=== PATIENT | male | born 1940 | race Caucasian/White ===

== ENCOUNTER 2020-02-11 14:21 | Outpatient (CLI) | payer MEDICARE, SELFPAY ==
[2020-02-11 15:33] LABS: Alanine Aminotransferase 13 U/L (4-50); Albumin Level 4.1 g/dL (3.5-5.1); Alkaline Phosphatase 88 U/L (38-126); Aspartate Amino Transferase 31 U/L (17-59); Bilirubin,Total 0.2 mg/dL (0.2-1.3); Blood Urea Nitrogen 40 mg/dL (9-20); Calcium 10.3 mg/dL (8.4-10.2); Carbon Dioxide 26 mmol/L (22-30); Chloride 105 mmol/L (98-107); Estimated Glomerular Filt Rate 42; Glucose 176 mg/dL (75-110); Potassium 4.7 mmol/L (3.4-5.0); Sodium 138 mmol/L (137-145); Uric Acid 8.2 mg/dL (3.5-8.5)
== END 2020-02-11 14:22 | disposition home or self-care (01) ==
PROVIDERS: PCP Physician Assistant; Referring Provider Podiatrist Foot & Ankle Surgery; Visit Provider Physician Assistant
DX: N18.3 Chronic kidney disease, stage 3 (moderate) (principal); M10.9 Gout, unspecified
CPT/HCPCS: 36415; 80053; 84550

== ENCOUNTER 2020-04-10 12:42 | Outpatient (CLI) | payer MEDICARE, SELFPAY ==
[2020-04-10 13:14] LABS: Total Protein Urine Random 31 mg/dL
[2020-04-10 13:20] LABS: Albumin Level 4.1 g/dL (3.5-5.1); Anion Gap 8 mmol/L (8-16); Blood Urea Nitrogen 51 mg/dL (9-20); Calcium 9.8 mg/dL (8.4-10.2); Carbon Dioxide 24 mmol/L (22-30); Chloride 103 mmol/L (98-107); Estimated Glomerular Filt Rate 34; Glucose 149 mg/dL (75-110); Phosphorus 3.5 mg/dL (2.5-4.5); Sodium 135 mmol/L (137-145)
[2020-04-10 13:32] LABS: Parathyroid Intact 89.1 pg/mL (7.5-53.5)
[2020-04-10 14:28] LABS: Vitamin D 25 Hydroxy 82.4 ng/mL
== END 2020-04-10 12:43 | disposition home or self-care (01) ==
PROVIDERS: PCP Physician Assistant; Visit Provider Internal Medicine Nephrology
DX: N18.3 Chronic kidney disease, stage 3 (moderate) (principal)
CPT/HCPCS: 36415; 80069; 82306; 82570; 83970; 84156

== ENCOUNTER 2020-05-28 16:14 | Outpatient (CLI) | payer MEDICARE, SELFPAY ==
[2020-05-28 17:01] LABS: Alanine Aminotransferase 14 U/L (4-50); Alkaline Phosphatase 94 U/L (38-126); Anion Gap 8 mmol/L (8-16); Aspartate Amino Transferase 30 U/L (17-59); Bilirubin,Total 0.3 mg/dL (0.2-1.3); Blood Urea Nitrogen 42 mg/dL (9-20); Calcium 10.1 mg/dL (8.4-10.2); Carbon Dioxide 29 mmol/L (22-30); Chloride 105 mmol/L (98-107); Estimated Glomerular Filt Rate 39; Glucose 132 mg/dL (75-110); Potassium 4.3 mmol/L (3.4-5.0); Sodium 142 mmol/L (137-145); Uric Acid 9.1 mg/dL (3.5-8.5)
== END 2020-05-28 16:15 | disposition home or self-care (01) ==
LOC: ANHLAB 16:20
PROVIDERS: PCP Physician Assistant; Visit Provider Podiatrist Foot & Ankle Surgery
DX: M10.9 Gout, unspecified (principal); B35.1 Tinea unguium
CPT/HCPCS: 36415; 80053; 84550

== ENCOUNTER 2020-07-15 10:57 | Outpatient (CLI) | payer MEDICARE, SELFPAY ==
[2020-07-15 11:58] LABS: Hematocrit 41.2 % (42.0-52.0); Hemoglobin 13.7 g/dL (14.0-18.0); Mean Corpuscular HGB Conc 33.3 g/dl (32-36); Mean Corpuscular Hemoglobin 32.1 pg (26-34); Mean Corpuscular Volume 96.5 fl (80-100); Mean Platelet Volume 10.3 fl (7.4-10.4); Platelet Count Result 192 k/mm3 (150-375); Red Blood Count 4.27 M/mm3 (4.6-6.20); Red Cell Distribution Width 13.4 % (11.5-14.5); White Blood Count 9.3 K/mm3 (4.5-10.0)
[2020-07-15 12:10] LABS: Albumin Level 3.9 g/dL (3.5-5.1); Anion Gap 5 mmol/L (8-16); Blood Urea Nitrogen 37 mg/dL (9-20); Calcium 10.2 mg/dL (8.4-10.2); Carbon Dioxide 28 mmol/L (22-30); Chloride 106 mmol/L (98-107); Estimated Glomerular Filt Rate 42; Glucose 145 mg/dL (75-110); Phosphorus 3.2 mg/dL (2.5-4.5); Sodium 139 mmol/L (137-145); Uric Acid 5.4 mg/dL (3.5-8.5)
[2020-07-15 12:20] LABS: Creatinine Urine 96.2 mg/dL; Total Protein Urine Random 61 mg/dL
[2020-07-15 13:01] LABS: Vitamin D 25 Hydroxy 67.3 ng/mL
== END 2020-07-15 10:58 | disposition home or self-care (01) ==
LOC: ANHLAB 10:59
PROVIDERS: PCP Physician Assistant; Visit Provider Internal Medicine Nephrology
DX: M10.9 Gout, unspecified (principal); N18.30 Chronic kidney disease, stage 3 unspecified
CPT/HCPCS: 36415; 80069; 82306; 82570; 83970; 84156; 84550; 85027

== ENCOUNTER 2020-10-22 10:27 | Outpatient (CLI) | payer MEDICARE, SELFPAY ==
--- NOTE | ~2020-10-22 | MR_ITS ---
EXAMINATION: MR lumbar spine wo con DATE: 10/22/2020 11:12 INDICATION: Chronic right-sided low back pain. TECHNIQUE: Magnetic resonance imaging (MRI) of the lumbar spine was performed without intravenous con trast. Sequences included sagittal T2-weighted FSE, sagittal T2-weighted FS FSE, sagittal T1-weighted FSE, and axial T2-weighted FSE. COMPARISON: Lumbar spine MRI 04/02/2014 FINDINGS: There is 7 degrees dextrocurvature of thoracolumbar spine. There is 3 mm retrolisthesis of L2 on L3, L3 on L4, L4 on L5, and L5 on S1. Vertebral body heights are normal. There is mildly decrea sed disc height at L1-L2, severely decreased disc height at L2-L3, mildly decreased disc height at L4 -L5, and moderately decreased disc height at L5-S1. The distal spinal cord signal intensity is normal . The conus medullaris is at T12-L1. The following disc levels are specifically discussed: L1-L2: The disc is bulging. There is mild left facet joint osteoarthritis. There is mild bilateral ne ural foraminal stenosis. There is mild central canal stenosis. L2-L3: The disc is bulging and has an annular fissure. There is no facet joint osteoarthritis. There is moderate bilateral neural foraminal stenosis. There is mild central canal stenosis. L3-L4: The disc is bulging and has an annular fissure. There is mild bilateral facet joint osteoarthr itis. There is moderate bilateral neural foraminal stenosis. There is mild central canal stenosis. L4-L5: The disc is bulging and has an annular fissure. There is no facet joint osteoarthritis. There is moderate bilateral neural foraminal stenosis. There is mild central canal stenosis. L5-S1: The disc is bulging and has an annular fissure. There is mild bilateral facet joint osteoarthr itis. There is moderate bilateral neural foraminal stenosis. There is mild central canal stenosis. IMPRESSION: 1. Severe lumbar spondylosis with interval improvement at L5-S1. Reviewed, dictated and finalized at location A. [employer]
== END 2020-10-22 10:28 | disposition home or self-care (01) ==
LOC: ANHIMG 10:35
PROVIDERS: PCP Physician Assistant; Visit Provider Physician Assistant
DX: M54.41 Lumbago with sciatica, right side (principal); G89.29 Other chronic pain; M47.896 Other spondylosis, lumbar region
CPT/HCPCS: 72148

== ENCOUNTER → 2021-05-02 13:27 | Outpatient (CLI) | payer MEDICARE, SELFPAY ==
--- NOTE | ~2021-05-02 | XR_ITS ---
XR hip RT min 2V DATE: 05/02/2021 13:50 INDICATION: Right hip pain TECHNIQUE: AP and lateral views of right hip COMPARISON: September 21, 2012 right hip FINDINGS: There is lumbar levoscoliosis and degenerative disc disease. The pubic symphysis and sacroiliac joints are intact. No fracture or dislocation, avascular necrosis or bone destruction of the right hip is evident. Right hip joint space appears well preserved. IMPRESSION: No significant abnormality right hip Reviewed, dictated and finalized at location A.
== END ==
PROVIDERS: PCP Physician Assistant; Visit Provider Physician Assistant
DX: M25.551 Pain in right hip (principal); M41.9 Scoliosis, unspecified
CPT/HCPCS: 73502

== ENCOUNTER 2021-05-18 13:05 | Emergency (ER) | payer MEDICARE, SELFPAY ==
--- NOTE | ~2021-05-18 | XR_ITS ---
XR chest 2V DATE: 05/18/2021 14:45 INDICATION: Cough, shortness of breath TECHNIQUE: AP and lateral views COMPARISON: 12/19/2016 PA and lateral chest FINDINGS: Heart size is normal. Is aortic calcification and unfolding. No hilar or mediastinal enlarg ement. Chronic discoid scarring of the middle lobe. No pulmonary infiltrate or consolidation, pleural effusi on or pulmonary vascular congestion or pneumothorax is detected. Diffuse osteopenia. No suspicious osteolytic or osteoblastic lesions are noted. IMPRESSION: No active cardiopulmonary disease Aortic atherosclerosis Reviewed, dictated and finalized at location A.
[2021-05-18 13:14] VITALS: BP 105/55; PULSE 76; RESP 20; TEMP 36.8; O2SAT 100
--- NOTE | 2021-05-18 14:09 | ED.URI ---
HPI - URI/Sore Throat General Chief Complaint: Upper Respiratory Infection Stated Complaint: cough/congestion/sob Time Seen by Provider: 05/18/21 14:10 Source: patient, family, RN notes reviewed and old records reviewed Mode of arrival: ambulatory Limitations: no limitations History of Present Illness HPI Narrative: 80-year-old male who presents to [facility] care with complaints of 5-6 day history of cough, congestion,sore throat, and some shortness of breath. is also ill with similar symptoms and was seen in the emergency room today. Patient states that he has had sinus congestion and drainage, severe cough with expectoration of yellowish sputum, highest temperature of 100F. Patient states history of some emphysema but quit tobacco use over 22 years ago does not have an inhaler at home. Patient has received his COVID vaccination. MD elicited complaint: fever (highest 100F), cough, sore throat, rhinorrhea, nasal congestion and other (dyspnea) Pertinent past history: COPD Related Data Home Medications Medication Instructions Recorded Confirmed aspirin 81 mg tablet,delayed 81 mg PO DAILY 02/06/20 12/17/20 release furosemide 40 mg tablet 40 mg PO BID tablet 02/06/20 12/17/20 gabapentin 400 mg capsule 800 mg PO BID cap 02/06/20 12/17/20 hydrochlorothiazide 25 mg tablet 25 mg PO DAILY 02/06/20 12/17/20 levocetirizine 5 mg tablet 10 mg PO QPM tablet 02/06/20 12/17/20 metoprolol tartrate 25 mg tablet 25 mg PO DAILY 02/06/20 12/17/20 qvnohxby-sbh-ngvgc acid 300 1 tablet PO DAILY 02/06/20 12/17/20 mcg-lycopene 600 mcg-lutein 300 mcg tablet omeprazole 20 mg capsule,delayed 20 mg PO DAILY 02/06/20 12/17/20 release rosuvastatin 10 mg tablet 10 mg PO QPM tablet 02/06/20 12/17/20 sennosides 8.6 mg-docusate sodium 1 tab-cap PO BID PRN 02/06/20 12/17/20 50 mg capsule febuxostat 40 mg tablet 40 mg PO DAILY 12/17/20 12/17/20 insulin human U-100 NPH-regulr 30 unit SUB-Q BID ml 04/27/21 70-30 mix 100 unit/mL subcutaneous susp Allergies Allergy/AdvReac Type Severity Reaction Status Date / Time No Known Allergies Allergy Unverified 11/26/16 14:07 Review of Systems Review of Systems: CONSTITUTIONAL: Low grade temperature highest 100F fever, no chills, or sweats. EYES: Denies visual changes, redness, or discharge. ENT: positive rhinorrhea, congestion, sore throat, no otalgia. CARDIOVASCULAR: Denies chest pain, palpitations, or edema. RESPIRATORY: Positive for cough, dyspnea with exertion, able to speak in full sentences GASTROINTESTINAL: Denies abdominal pain, nausea, vomiting, or diarrhea. GENITOURINARY: Denies dysuria or hematuria. SKIN: Denies rash or itching. MUSCULOSKELETAL: Denies back pain, joint pain, or myalgia. NEUROLOGIC: Positive for headache,no numbness or weakness PSYCHIATRIC: Denies anxiety or depression. All systems reviewed & are unremarkable except as noted in HPI and below PMFSH Past Medical History Medical History (Updated 05/18/21 @ 15:55 by Haley Valentine NP) Chronic kidney disease (CKD) stage G3b/A3, moderately decreased glomerular filtration rate (GFR) between 30-44 mL/min/1.73 square meter and albuminuria creatinine ratio greater than 300 mg/g Diabetic polyneuropathy associated with type 2 diabetes mellitus Essential hypertension Kidney stones Pure hypercholesterolemia, unspecified Type 2 diabetes mellitus with hyperglycemia, with long-term current use of insulin Surgical History Surgical History (Updated 05/18/21 @ 15:55 by Haley Valentine NP) H/O lithotripsy H/O Spinal surgery History of appendectomy S/P left knee arthroscopy Family History Family History Mother Hypertension Sibling Hypertension Family history of diabetes mellitus in first degree relative Father Family history of malignant neoplasm Other Diabetes mellitus Family history of arthritis Family history of kidney disease Social History Soci
== END 2021-05-18 15:18 | disposition home or self-care (01) ==
PROVIDERS: Emergency Provider Registered Nurse; PCP Physician Assistant
DX: J40 Bronchitis, not specified as acute or chronic (principal); J06.9 Acute upper respiratory infection, unspecified; Z87.891 Personal history of nicotine dependence; I12.9 Hypertensive chronic kidney disease with stage 1 through stage 4 chronic kidney disease, or unspecified chronic kidney disease; E11.22 Type 2 diabetes mellitus with diabetic chronic kidney disease; N18.30 Chronic kidney disease, stage 3 unspecified; E11.21 Type 2 diabetes mellitus with diabetic nephropathy; Z79.82 Long term (current) use of aspirin
CPT/HCPCS: 71046; 99213; G0463

== ENCOUNTER 2021-05-22 11:25 | Inpatient (IN) | payer MEDICARE, SELFPAY ==
[2021-05-22] VITALS (43 sets, daily range): BP systolic 97–153; BP diastolic 48–109; PULSE 74–83; RESP 18–32; TEMP 36.3–38.2; O2SAT 91–100; BMI 34.9
--- NOTE | ~2021-05-22 | XR_ITS ---
EXAMINATION: XR chest 1V portable DATE: 05/31/2021 05:41 INDICATION: COVID-19 pneumonia. TECHNIQUE: A single frontal view of the chest was obtained. COMPARISON: Chest single view 05/30/2021, chest CT 05/27/2021 FINDINGS: There are lucencies in the lungs, consistent with emphysema. There are airspace opacities i n all right lung zones and in left mid and lower lung zones. A calcified right lung nodule and calcif ied right hilar lymph nodes are consistent with old granulomatous disease. No pleural effusion or pne umothorax. The heart size is normal. IMPRESSION: 1. Stable diffuse lung disease, consistent with pneumonia. 2. Emphysema. Reviewed, dictated and finalized at location A.
--- NOTE | ~2021-05-22 | CT_ITS ---
EXAMINATION: CT BRAIN W/O DATE: 05/30/2021 12:26 INDICATION: Encephalopathy TECHNIQUE: Computed tomography (CT) of the head was performed without intravenous contrast. The dose- length product was 605.33 mGy-cm. Automated exposure control and iterative reconstruction technique w ere employed. COMPARISON: CT dated 01/07/2016 FINDINGS: Normal brain parenchymal volume for age. Normal howell-white differentiation. No acute intrac ranial hemorrhage, infarction, mass or mass effect. Generalized brain parenchymal volume loss. There are scattered mild periventricular and subcortical white matter changes, most likely related to small vessel ischemic disease (microangiopathy). No ventriculomegaly or midline shift. Midline sagittal images demonstrate a normal corpus callosum, c raniovertebral junction and sella turcica. Basilar cisterns are patent. Paranasal sinuses and mastoids are pneumatized. No depressed skull fractures. IMPRESSION: 1. No acute intracranial abnormality. Reviewed, dictated and finalized at location A.
--- NOTE | ~2021-05-22 | XR_ITS ---
XR ankle RT 2V DATE: 05/22/2021 13:56 INDICATION: Post- reduction TECHNIQUE: 2 views COMPARISON: 05/22/2021 prereduction left ankle FINDINGS: There is reduction of the posterior lateral dislocation at the tibiotalar joint. There is minimal lateral displacement at the bimalleolar fractures. There is soft tissue bandage around the lower leg and ankle. IMPRESSION: Reduction of posterolateral dislocation; mild laterally displaced medial and lateral mall eolar fractures Reviewed, dictated and finalized at location A. IMPRESSION: Reduction of posterolateral dislocation; mild laterally displaced m edial and lateral malleolar fractures
--- NOTE | ~2021-05-22 | XR_ITS ---
EXAMINATION: XR chest 1V portable DATE: 05/24/2021 16:03 INDICATION: Hypoxia. TECHNIQUE: frontal view of the chest was obtained. COMPARISON: Chest radiograph dated 05/18/2021 FINDINGS: Increased lucency and some architectural distortion at the upper lung zones consistent with emphysema better appreciated on CT dated 09/17/2009. Mild thin linear discoid atelectasis/scarring in the right middle and lower lung zones. Calcified nodule at the right lung base consistent with old granulomatou s disease. No pulmonary edema, pleural effusion or pneumothorax. The cardiomediastinal silhouette is normal. Visualized bones and soft tissues are unremarkable. IMPRESSION: 1. Emphysema with scattered mild discoid atelectasis/scarring at the right middle and lower lung zone s. Reviewed, dictated and finalized at location A. IMPRESSION: 1. Emphysema with scattered mild discoid atelectasis/scarring at the right midd le and lower lung zones.
--- NOTE | ~2021-05-22 | CT_ITS ---
EXAMINATION: CTA chest PE protocol DATE: 05/27/2021 22:26 INDICATION: COVID-19 pneumonia. TECHNIQUE: Computed tomography angiography (CTA) of the chest was performed with 100 mL Omnipaque-350 intravenous contrast timed to evaluate the pulmonary arteries. Coronal maximum intensity projection 3D-reconstructions were created by the technologist. Automated exposure control and iterative reconst ruction technique were employed. The dose-length product was 594.55 mGy-cm. COMPARISON: Chest CT 09/17/2009 FINDINGS: There is moderate emphysema. There is mild scarring at right lung apex. There are scattered groundglass opacities in the lungs with a lower lung predominance. There are airspace opacities in t he lower lobes, right middle lobe, and lingula. Calcified right lung nodules and calcified right drew r lymph nodes are consistent with old granulomatous disease. There is a trace left pleural effusion. The heart size is normal. There are coronary artery calcifications. No pericardial effusion. There is no pulmonary embolus. There are calcifications in the liver and spleen, consistent with old granulom atous disease. There is surface nodularity of the liver, consistent with cirrhosis. There is mild tho racic spondylosis. IMPRESSION: 1. No pulmonary embolus. 2. Diffuse lung disease, consistent with pneumonia. 3. Moderate emphysema. 4. Cirrhosis of the liver. Reviewed, dictated and finalized at location A.
--- NOTE | ~2021-05-22 | XR_ITS ---
XR ankle RT 2V DATE: 05/22/2021 11:46 INDICATION: Deformity TECHNIQUE: 2 views COMPARISON: None FINDINGS: There is bimalleolar fracture and posterolateral dislocation at the ankle joint. Cannot definitively exclude posterior malleolar fracture. Mild plantar and slight posterior calcaneal enthesopathy. IMPRESSION: Bimalleolar fracture with posterolateral dislocation at the tibiotalar joint; cannot excl ude posterior malleolar fracture Reviewed, dictated and finalized at location A. IMPRESSION: Bimalleolar fracture with posterolateral dislocation at the tibiota lar joint; cannot exclude posterior malleolar fracture
--- NOTE | ~2021-05-22 | XR_ITS ---
XR chest 1V portable 05/30/2021 05:49 Indication: CovidPneumonia Procedure: AP portable chest Comparison: Comparison to multiple prior studies sequentially, with oldest reviewed study dated 12/2020. Findings: Heart size normal. Patchy bilateral perihilar and basilar airspace disease unchanged, consi stent with pneumonia. No significant effusion. No pneumothorax. No acute osseous abnormality. Impression: 1: Bilateral airspace disease, compatible with pneumonia. No significant change. Reviewed, dictated and finalized at location A. Impression: 1: Bilateral airspace disease, compatible with pneumonia. No significant change .
--- NOTE | ~2021-05-22 | XR_ITS ---
EXAMINATION: XR chest 1V portable INDICATION: Increased oxygen requirements, COVID pneumonia TECHNIQUE: Portable AP chest at 2140 hours COMPARISON: 0507 hours FINDINGS: Airspace opacities of the lung bases and left midlung zone persists without significant alban nge. No pleural effusion or pneumothorax is identified. Lucencies in the upper lung zones are consist ent with emphysema. There is no pleural effusion or pneumothorax. The cardiomediastinal silhouette is normal. IMPRESSION: 1. Stable airspace opacities of the lung bases and left midlung zone, consistent with pneumonia. Reviewed, dictated and finalized at location A. IMPRESSION: 1. Stable airspace opacities of the lung bases and left midlung zone, consisten t with pneumonia.
--- NOTE | ~2021-05-22 | XR_ITS ---
XR chest 1V portable 05/29/2021 05:43 Indication: Shortness of breath. Covid pneumonia. Procedure: AP portable chest Comparison: Comparison to multiple prior studies sequentially, with oldest reviewed study dated 03/2017. Findings: There is extensive bilateral airspace disease of the mid and lower lungs which has progress ed since prior examination, consistent with pneumonia. No significant effusion. No pneumothorax. No a cute osseous abnormality. Heart size normal. Impression: 1: Progression of bilateral airspace disease, compatible with pneumonia. Reviewed, dictated and finalized at location A. Impression: 1: Progression of bilateral airspace disease, compatible with pneumonia.
--- NOTE | ~2021-05-22 | XR_ITS ---
EXAMINATION: XR chest 1V portable EXAM DATE: 05/26/2021 01:12 INDICATION: Increased oxygen requirement, COVID+ HX COPD, HTN. TECHNIQUE: Portable AP frontal chest x-ray was obtained. Comparison is made to prior examination from 05/24/2021, 05/18/2021. FINDINGS: There is been interval progression of the bibasilar airspace disease with obvious linear co mponent, atelectasis, but also developing less well-defined airspace disease probably superimposed pn eumonia. No pneumothorax or sizable pleural effusion. Cardiomediastinal silhouette is normal. There i s aortic arteriosclerosis. There are no osseous abnormalities identified. IMPRESSION: Progression of multifocal bibasilar atelectasis and pneumonia. Reviewed, dictated and finalized at location A.
--- NOTE | ~2021-05-22 | XR_ITS ---
EXAMINATION: XR surgery orthopedic DATE: 05/25/2021 16:30 INDICATION: ORIF right ankle fracture TECHNIQUE: 7 fluoroscopic images of the right ankle were obtained during procedure performed by Dr. Autumn vivar. Radiologist was not present for the imaging or procedure. The amount of fluoroscopy time u sed during this procedure was 0.9 minutes. COMPARISON: 05/22/2021 FINDINGS: Images redemonstrate a bimalleolar fracture of the right ankle. Initial images demonstrate open reduc tion internal fixation of the distal fibular fracture with an interfragmentary screw and lateral plat e and screws. Subsequently the medial malleolar fractures reduced and fixed with a pair of lag screws . Alignment of the fractures following the fixation screw are essentially anatomic with a congruent a nkle mortise. No other fractures identified. Expected small amount of intra-articular gas. IMPRESSION: 1. Essentially anatomic alignment post open reduction internal fixation of a bimalleolar fracture of the right ankle. Reviewed, dictated and finalized at location A. IMPRESSION: 1. Essentially anatomic alignment post open reduction internal fixation of a bi malleolar fracture of the right ankle.
[2021-05-22 12:46] LABS: Basophils Percent Auto 0.3 % (0.2-1.2); Eosinophils Absolute Auto 0.2 K/mm3 (0-0.3); Eosinophils Percent Auto 1.9 % (0-4.4); Hematocrit 36.2 % (42.0-52.0); Hemoglobin 11.2 g/dL (14.0-18.0); Immature Granulocyte Absolute 0.22 K/mm3 (0.00-0.031); Immature Granulocyte Percent A 2.2 % (0-0.5); Lymphocytes Absolute Auto 0.67 K/mm3 (0.9-3.2); Lymphocytes Percent Auto 6.7 % (18.3-44.2); Mean Corpuscular HGB Conc 30.9 g/dl (32-36); Mean Corpuscular Volume 87.2 fl (80-100); Mean Platelet Volume 10.6 fl (7.4-10.4); Monocytes Absolute Auto 0.7 K/mm3 (0.1-0.6); Monocytes Percent Auto 7.1 % (2.6-8.5); Neutrophils Absolute Auto 8.2 K/mm3 (1.3-6.7); Neutrophils Percent Auto 81.8 % (45.5-73.1); Platelet Count Result 203 k/mm3 (150-375); Red Blood Count 4.15 M/mm3 (4.6-6.20); Red Cell Distribution Width 14.7 % (11.5-14.5)
[2021-05-22 13:00] LABS: Alanine Aminotransferase 15 U/L (4-50); Albumin Level 3.8 g/dL (3.5-5.1); Alkaline Phosphatase 87 U/L (38-126); Anion Gap 9 mmol/L (8-16); Aspartate Amino Transferase 43 U/L (17-59); Bilirubin,Total 0.3 mg/dL (0.2-1.3); Blood Urea Nitrogen 45 mg/dL (9-20); Carbon Dioxide 26 mmol/L (22-30); Chloride 102 mmol/L (98-107); Estimated CRCL calculation 38 ml/min; Estimated Glomerular Filt Rate 36; Glucose 157 mg/dL (65-110); Potassium 4.5 mmol/L (3.4-5.0); Sodium 137 mmol/L (137-145)
--- NOTE | 2021-05-22 13:22 | PC.NURSE ---
consent signed and placed in chart
[2021-05-22] MEDS: SODIUM CHLORIDE 0.9% IV 1,000 ML 999 ML (13:30)
[2021-05-22] MEDS: fentaNYL CITRATE INJ (*CRX) 100 MCG/2 ML VIAL 200 MCG (13:35)
[2021-05-22] MEDS: PROPOFOL IV EMULSION 200 MG/20 ML VIAL (13:39)
--- NOTE | 2021-05-22 14:30 | PC.NURSE ---
pt received fentanyl [address] glynn at 1335 pt received Propofol [address] Glynn at 1337
--- NOTE | 2021-05-22 14:34 | ECG_ITS ---
Measurements Intervals [place] Rate: 76 P: 13 AR: 150 QRS: 41 QRSD: 86 T: 20 QT: 348 QTc: 392 Interpretive Statements SINUS RHYTHM BASELINE ARTIFACT- II, III, AVF NORMAL ECG Electronically Signed On 05-22-2021 15:06:07 CDT by Ovidio Syed D.O.
--- NOTE | 2021-05-22 15:04 | ED.LOWEXIN ---
HPI - Extremity Injury (Lower) General Chief Complaint: Extremity Injury, Lower Stated Complaint: ankle deformity Time Seen by Provider: 05/22/21 11:45 Source: patient Mode of arrival: EMS Limitations: no limitations History of Present Illness HPI Narrative: 80-year-old male Here for right ankle injury Patient has frequent issues with orthostatic hypotension and dizziness when he gets up and out of bed especially first thing in the morning He also has some numbness in his feet, presumably diabetic neuropathy Today he got up too quickly and took a misstep after feeling lightheaded and dizzy and twisted his right ankle EMS reported obvious deformity to the ankle Patient has no other complaints, no loss of consciousness, did not hit his head, no neck pain, no other injuries, no chest pain or nausea or vomiting or anything MD complaint: ankle injury Related Data Home Medications Medication Instructions Recorded Confirmed aspirin 81 mg tablet,delayed 81 mg PO DAILY 02/06/20 12/17/20 release furosemide 40 mg tablet 40 mg PO BID tablet 02/06/20 12/17/20 gabapentin 400 mg capsule 800 mg PO BID cap 02/06/20 12/17/20 hydrochlorothiazide 25 mg tablet 25 mg PO DAILY 02/06/20 12/17/20 levocetirizine 5 mg tablet 10 mg PO QPM tablet 02/06/20 12/17/20 metoprolol tartrate 25 mg tablet 25 mg PO DAILY 02/06/20 12/17/20 zfsrserp-lhm-mjocg acid 300 1 tablet PO DAILY 02/06/20 12/17/20 mcg-lycopene 600 mcg-lutein 300 mcg tablet omeprazole 20 mg capsule,delayed 20 mg PO DAILY 02/06/20 12/17/20 release rosuvastatin 10 mg tablet 10 mg PO QPM tablet 02/06/20 12/17/20 sennosides 8.6 mg-docusate sodium 1 tab-cap PO BID PRN 02/06/20 12/17/20 50 mg capsule febuxostat 40 mg tablet 40 mg PO DAILY 12/17/20 12/17/20 insulin human U-100 NPH-regulr 30 unit SUB-Q BID ml 04/27/21 70-30 mix 100 unit/mL subcutaneous susp Allergies Allergy/AdvReac Type Severity Reaction Status Date / Time No Known Allergies Allergy Unverified 11/26/16 14:07 Review of Systems Review of Systems: All systems reviewed & are unremarkable except as noted in HPI and below Constitutional: Constitutional: Reports no additional constitutional complaints, Denies chills, Denies fever(s), Denies headache(s) and Reports weakness Eyes: Eyes: Reports no additional eye complaints and Denies change in vision ENT: Denies headache(s) and Denies sore throat Cardiovascular: Cardiovascular: Denies chest pain and Denies dyspnea Respiratory: Respiratory: Denies cough and Denies dyspnea Gastrointestinal: Gastrointestinal: Denies abdominal pain, Denies diarrhea and Denies vomiting Genitourinary: Genitourinary: Denies dysuria and Denies urinary frequency Musculoskeletal: Musculoskeletal: Denies back pain, Denies deformity, Reports arthralgias, Reports joint swelling and Denies numbness Integumentary/Breasts: Skin/Breast: Denies rash and Denies wounds Neurologic: Reports dizziness, Reports syncope, Denies headache(s), Denies focal weakness, Denies numbness and Reports weakness Psychiatric: Psychiatric: Reports no additional psychiatric complaints Endocrine: Endocrine: Reports no additional endocrine complaints Hematologic/Lymphatic: Hematologic/Lymphatic: Reports no additional hematologic/lymphatic complaints, Denies easy bleeding and Denies easy bruising Allergic/Immunologic: Allergic/Immunologic: Reports no additional allergic/immunologic complaints [facility] Past Medical History Medical History Chronic kidney disease (CKD) stage G3b/A3, moderately decreased glomerular filtration rate (GFR) between 30-44 mL/min/1.73 square meter and albuminuria creatinine ratio greater than 300 mg/g Diabetic polyneuropathy associated with type 2 diabetes mellitus Essential hypertension Kidney stones Pure hypercholesterolemia, unspecified Type 2 diabetes mellitus with hyperglycemia, with long-term current use of insulin De Jesus
--- NOTE | 2021-05-22 16:28 | PM.IMHP ---
H&P: HPI History of Present Illness Date/Time: 05/22/21 16:28 this is a 80-year-old male patient with past medical history of Parkinson's. he often times has falls Due to his Parkinson's. He lives with his . The patient was sitting on his bed when he slid out and got tangled in the bed linen and fell this morning. Patient did not complain of any dizziness or chest pain. He does have some numbness to his feet with possible diabetic neuropathy. The patient twisted his right ankle. It was reported that the patient got dizzy. However the daughter is at the bedside answering questions. The daughter was not aware of him feeling dizzy. The patient is not able to answer questions at this time as he was recently sedated to align his right foot and placed a partial cast on it. When the patient came into the emergency room he had an obvious deformity to the ankle. He did not hit his head or lose consciousness. First x-ray of the right ankle was read as by malleolar fracture with posterior lateral dislocation at the tibial Paul joint cannot exclude posterior malleolar fracture. repeat x-ray after manipulation was read as reduction of posterior lateral dislocation mild laterally displaced medial and lateral malleolar fractures. Dr. Sandoval has been consulted and agrees to see the patient. The patient was given propofol and fentanyl for the procedure. He was also started on IV fluids. The patient is being admitted to observation status on the date of service of 05/22/2021. Chief Complaint: Fall with right ankle pain Review of Systems Review of Systems: ROS unobtainable: Yes unobtainable due to mental status ( Patient was recently sedated and his daughters answering questions.) [facility] Past Medical History Medical History (Updated 05/22/21 @ 16:54 by Marly Edmondson NP) Chronic kidney disease (CKD) stage G3b/A3, moderately decreased glomerular filtration rate (GFR) between 30-44 mL/min/1.73 square meter and albuminuria creatinine ratio greater than 300 mg/g COPD (chronic obstructive pulmonary disease) Dementia Diabetic polyneuropathy associated with type 2 diabetes mellitus Essential hypertension Kidney stones Parkinsons Pure hypercholesterolemia, unspecified Type 2 diabetes mellitus with hyperglycemia, with long-term current use of insulin Surgical History Surgical History (Updated 05/22/21 @ 16:54 by Marly Edmondson NP) H/O lithotripsy H/O Spinal surgery History of ankle surgery on the left History of appendectomy History of cardiac catheterization treated medically without any stents. History of total knee arthroplasty S/P left knee arthroscopy Family History Family History Mother Hypertension Sibling Hypertension Family history of diabetes mellitus in first degree relative Father Family history of malignant neoplasm Other Diabetes mellitus Family history of arthritis Family history of kidney disease Social History Social History (Updated 05/22/21 @ 16:59 by Marly Edmondson NP) Social History: the patient lives with his . The daughter tells me that he is a DNR. He has 2 children and that his children are the durable power civil rights attorney for healthcare. The daughter tells me that he is a DNR. 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 Does not use any alcohol marijuana or illicit drugs. dnr Smoking status: Former smoker Second hand tobacco smoke exposure: No Smoking end date: 08/14/00 Alcohol intake: never Substance use: never Gender identity (if verbalized by the patient): Male Meds Home Medications and Allergies Home Medications Medication Instructions Recorded Confirmed Type aspirin 81 mg tablet,delayed 81 mg PO DAILY 02/06/20 12/17/20 History release blood sugar diagnostic #200 each 02/06/20 12/17/20 Rx furosemide 40 mg tablet 40 mg PO BID tablet 02/06/20 12/17/20 History gabapent
[2021-05-22 18:01] LABS: EDCOVIDSCREEN Positive (Negative)
--- NOTE | 2021-05-22 18:46 | PC.NURSE ---
This patient, Lj Kelley, was received from [245/01 to room 331/2 ] on 05/22/21 at 1830. Patient/family oriented to unit policies and routines. pt orientated to use of call light, denies any pain at this time.
[2021-05-22] MEDS: LACTATED RINGERS 1,000 ML 50 ML IV CONT (19:18)
[2021-05-22] MEDS: ACETAMINOPHEN 325 MG TABLET 650 MG PO (21:37)
[2021-05-22 21:48] LABS: Glucose Point of Care 189 mg/dl (65-105)
[2021-05-23] VITALS (13 sets, daily range): BP systolic 132–177; BP diastolic 54–82; PULSE 73–98; RESP 18–22; TEMP 35.9–37.6; O2SAT 92–94
[2021-05-23] MEDS: ACETAMINOPHEN 325 MG TABLET 650 MG PO ×2 (06:54→17:51)
[2021-05-23 07:46] LABS: Basophils Percent Auto 0.3 % (0.2-1.2); Eosinophils Absolute Auto 0.1 K/mm3 (0-0.3); Hematocrit 32.2 % (42.0-52.0); Hemoglobin 10.2 g/dL (14.0-18.0); Immature Granulocyte Absolute 0.18 K/mm3 (0.00-0.031); Immature Granulocyte Percent A 1.9 % (0-0.5); Lymphocytes Absolute Auto 0.79 K/mm3 (0.9-3.2); Lymphocytes Percent Auto 8.4 % (18.3-44.2); Mean Corpuscular HGB Conc 31.7 g/dl (32-36); Mean Corpuscular Hemoglobin 26.8 pg (26-34); Mean Corpuscular Volume 84.5 fl (80-100); Mean Platelet Volume 9.9 fl (7.4-10.4); Monocytes Absolute Auto 0.5 K/mm3 (0.1-0.6); Monocytes Percent Auto 5.1 % (2.6-8.5); Neutrophils Absolute Auto 7.8 K/mm3 (1.3-6.7); Neutrophils Percent Auto 83.3 % (45.5-73.1); Platelet Count Result 170 k/mm3 (150-375); Red Blood Count 3.81 M/mm3 (4.6-6.20); Red Cell Distribution Width 14.7 % (11.5-14.5); White Blood Count 9.4 K/mm3 (4.5-10.0)
[2021-05-23 08:02] LABS: Alanine Aminotransferase 21 U/L (4-50); Albumin Level 3.3 g/dL (3.5-5.1); Alkaline Phosphatase 77 U/L (38-126); Anion Gap 9 mmol/L (8-16); Aspartate Amino Transferase 38 U/L (17-59); Bilirubin,Total 0.3 mg/dL (0.2-1.3); Blood Urea Nitrogen 44 mg/dL (9-20); Calcium 9.2 mg/dL (8.4-10.2); Carbon Dioxide 22 mmol/L (22-30); Chloride 103 mmol/L (98-107); Estimated CRCL calculation 47 ml/min; Estimated Glomerular Filt Rate 45; Glucose 190 mg/dL (65-110); Potassium 3.9 mmol/L (3.4-5.0); Sodium 134 mmol/L (137-145)
[2021-05-23 08:04] LABS: Hemoglobin A1C 7.3 % (<5.7)
[2021-05-23 08:28] LABS: Glucose Point of Care 185 mg/dl (65-105)
--- NOTE | 2021-05-23 10:50 | P.PNIM_ITS ---
Progress Note: A&P Assessment and Plan (1) Closed bimalleolar fracture of right ankle: Code(s): S82.841A - Displaced bimalleolar fracture of right lower leg, initial encounter for closed fracture Status: Acute Assessment and Plan: * ortho has been consulted. * partial cast to the right ankle. * Multiple falls reported will likely need rehab * frequent falls possibly from his Parkinson's or peripheral neuropathy from his diabetes. * PT and OT * pain management. * lean manufacturing coordinator for possible placement. * Ortho to manage post care * antiemetic for nausea * Surgical services scheduled for tomorrow (2) COVID-19: Code(s): U07.1 - COVID-19 Status: Acute Assessment and Plan: * Known exposure from * COVID swab positive in ed * Repeat PCR * No symptoms at this time * no need to start covid medications at this time * Vaccinated with Maderna October/November (3) COPD (chronic obstructive pulmonary disease): Code(s): J44.9 - Chronic obstructive pulmonary disease, unspecified Status: Chronic Assessment and Plan: * No acute exacerbation * albuterol ordered * No reported wheezes, shortness of breath, or sputum (4) Parkinsons: Code(s): G20 - Parkinson's disease Status: Chronic Assessment and Plan: * carbidopa levodopa 50mg PO TID with meal (5) Peripheral neuropathy: Code(s): G62.9 - Polyneuropathy, unspecified Status: Acute Assessment and Plan: * gabapentin 800mg BID PO * Education (6) Frequent falls: Code(s): R29.6 - Repeated falls Status: Acute Assessment and Plan: * PT OT * Fall precautions (7) Type 2 diabetes mellitus with hyperglycemia, with long-term current use of insulin: Code(s): E11.65 - Type 2 diabetes mellitus with hyperglycemia; Z79.4 - truck terminal manager (current) use of insulin Status: Acute Assessment and Plan: * Glucose 190 * Accu-Cheks AC and HS * A1c 7.3 * sliding scale insulin. * Hypoglycemia protocol * Adjust medications as needed (8) Essential hypertension: Code(s): I10 - Essential (primary) hypertension Status: Chronic Assessment and Plan: * BP 142/74 * Continue home metoprolol 25mg PO Daily * Trend BP * Adjust medications as needed (9) Pure hypercholesterolemia, unspecified: Code(s): E78.00 - Pure hypercholesterolemia, unspecified Status: Acute Assessment and Plan: * Continue home Rosuvastatin 10mg PO daily * Lipid panel in the am * Adjust medications as needed (10) Chronic kidney disease (CKD) stage G3b/A3, moderately decreased glomerular filtration rate (GFR) between 30-44 mL/min/1.73 square meter and albuminuria creatinine ratio greater than 300 mg/g: Code(s): N18.3 - Chronic kidney disease, stage 3 (moderate) Status: Acute Assessment and Plan: * BUN/Cr 44/1.50 * Trend labs * Avoid nephrotoxic medications * patient appears to be at his baseline and it is stable. (11) Diabetic polyneuropathy associated with type 2 diabetes mellitus: Code(s): E11.42 - Type 2 diabetes mellitus with diabetic polyneuropathy Status: Chronic Assessment and Plan: * gabapentin 800mg PO BID
--- NOTE | 2021-05-23 10:50 | PM.IMPN ---
Progress Note: A&P Assessment and Plan (1) Closed bimalleolar fracture of right ankle: Code(s): S82.841A - Displaced bimalleolar fracture of right lower leg, initial encounter for closed fracture Status: Acute Assessment and Plan: ortho has been consulted. partial cast to the right ankle. Multiple falls reported will likely need rehab frequent falls possibly from his Parkinson's or peripheral neuropathy from his diabetes. PT and OT pain management. fruit coordinator for possible placement. Ortho to manage post care antiemetic for nausea Surgical services scheduled for tomorrow (2) COVID-19: Code(s): U07.1 - COVID-19 Status: Acute Assessment and Plan: Known exposure from COVID swab positive in ed Repeat PCR No symptoms at this time no need to start covid medications at this time Vaccinated with Maderna October/November (3) COPD (chronic obstructive pulmonary disease): Code(s): J44.9 - Chronic obstructive pulmonary disease, unspecified Status: Chronic Assessment and Plan: No acute exacerbation albuterol ordered No reported wheezes, shortness of breath, or sputum (4) Parkinsons: Code(s): G20 - Parkinson's disease Status: Chronic Assessment and Plan: carbidopa levodopa 50mg PO TID with meal (5) Peripheral neuropathy: Code(s): G62.9 - Polyneuropathy, unspecified Status: Acute Assessment and Plan: gabapentin 800mg BID PO Education (6) Frequent falls: Code(s): R29.6 - Repeated falls Status: Acute Assessment and Plan: PT OT Fall precautions (7) Type 2 diabetes mellitus with hyperglycemia, with long-term current use of insulin: Code(s): E11.65 - Type 2 diabetes mellitus with hyperglycemia; Z79.4 - long-term (current) use of insulin Status: Acute Assessment and Plan: Glucose 190 Accu-Cheks AC and HS A1c 7.3 sliding scale insulin. Hypoglycemia protocol Adjust medications as needed (8) Essential hypertension: Code(s): I10 - Essential (primary) hypertension Status: Chronic Assessment and Plan: BP 142/74 Continue home metoprolol 25mg PO Daily Trend BP Adjust medications as needed (9) Pure hypercholesterolemia, unspecified: Code(s): E78.00 - Pure hypercholesterolemia, unspecified Status: Acute Assessment and Plan: Continue home Rosuvastatin 10mg PO daily Lipid panel in the am Adjust medications as needed (10) Chronic kidney disease (CKD) stage G3b/A3, moderately decreased glomerular filtration rate (GFR) between 30-44 mL/min/1.73 square meter and albuminuria creatinine ratio greater than 300 mg/g: Code(s): N18.3 - Chronic kidney disease, stage 3 (moderate) Status: Acute Assessment and Plan: BUN/Cr 44/1.50 Trend labs Avoid nephrotoxic medications patient appears to be at his baseline and it is stable. (11) Diabetic polyneuropathy associated with type 2 diabetes mellitus: Code(s): E11.42 - Type 2 diabetes mellitus with diabetic polyneuropathy Status: Chronic Assessment and Plan: gabapentin 800mg PO BID Time Spent With Patient Time with patient: Greater than 35 minutes Subjective Date/time seen: 05/23/21 10:51 Interval history: Patient is an 80 year old male that is her for a fall and suffered an ankle fracture. He does not have many complaints today. He is concerned about his ankle. He denies having pain. He denies shortness of breath, chest pain, palpitations, nausea, vomiting, diarrhea, constipation, or weakness. He does have some lightheadedness and dizziness when he changes positions too quickly. This is why he fell in the first place. His rapid covid was positive, will repeat the PCR. Dr. Sandoval is on board for the ankle fracture.
[2021-05-23 11:54] LABS: Glucose Point of Care 182 mg/dl (65-105)
--- NOTE | 2021-05-23 14:54 | PCPTNOTE ---
Pt refused therapy due to being too cold and tired today. He agreed to therapy tomorrow when he is not tired.
[2021-05-23 16:50] LABS: Glucose Point of Care 178 mg/dl (65-105)
[2021-05-23] MEDS: ONDANSETRON INJ 4 MG/2 ML VIAL IV PUSH (17:51)
--- NOTE | 2021-05-23 19:42 | PM.CNOR ---
Assessment and Plan Assessment and plan (1) Closed bimalleolar fracture of right ankle: Code(s): S82.841A - Displaced bimalleolar fracture of right lower leg, initial encounter for closed fracture Status: Acute (2) COVID-19: Code(s): U07.1 - COVID-19 Status: Acute (3) Parkinsons: Code(s): G20 - Parkinson's disease Status: Chronic (4) Peripheral neuropathy: Code(s): G62.9 - Polyneuropathy, unspecified Status: Acute (5) Type 2 diabetes mellitus with hyperglycemia, with long-term current use of insulin: Code(s): E11.65 - Type 2 diabetes mellitus with hyperglycemia; Z79.4 - reproducer (current) use of insulin Status: Acute (6) Chronic kidney disease (CKD) stage G3b/A3, moderately decreased glomerular filtration rate (GFR) between 30-44 mL/min/1.73 square meter and albuminuria creatinine ratio greater than 300 mg/g: Code(s): N18.3 - Chronic kidney disease, stage 3 (moderate) Status: Acute Assessment and Plan: Bimalleolar ankle fracture dislocation reduced and splinted. Will require ORIF of bimalleolar ankle fracture. We discussed the risks, benefits, and alternatives to surgery. Multiple comorbidities, increase risk. Asymptomatic Covid-19 with prior vaccination. PCR test Monday to confirm diagnosis. Continue to elevate limb to decrease swelling in preparation for surgery. Plan for surgery Monday to follow scheduled cases. He is interested in home discharge; will assess post-op with therapy. History of Present Illness HPI Consult date: 05/23/21 Consult reason: fracture Chief complaint: Ankle fx, orthostatic hypotension Narrative: Fell at home. Was quarantined in his basement away from his with Covid 19 since last week. History of Parkinsonism. Denies significant symptoms. Ankle fracture dislocation reduced and splinted in the ED. Denies associated injuries. Review of Systems Review of Systems: Denies loss of consciousness. Complains of occasional dizziness, and falls. Positive Covid-19 test. All systems reviewed & are unremarkable except as noted in HPI and below PMFSH Past Medical History Medical History Chronic kidney disease (CKD) stage G3b/A3, moderately decreased glomerular filtration rate (GFR) between 30-44 mL/min/1.73 square meter and albuminuria creatinine ratio greater than 300 mg/g COPD (chronic obstructive pulmonary disease) Dementia Diabetic polyneuropathy associated with type 2 diabetes mellitus Essential hypertension Kidney stones Parkinsons Pure hypercholesterolemia, unspecified Type 2 diabetes mellitus with hyperglycemia, with long-term current use of insulin Surgical History Surgical History H/O lithotripsy H/O Spinal surgery History of ankle surgery on the left History of appendectomy History of cardiac catheterization treated medically without any stents. History of total knee arthroplasty S/P left knee arthroscopy Family History Family History Mother Hypertension Sibling Hypertension Family history of diabetes mellitus in first degree relative Father Family history of malignant neoplasm Other Diabetes mellitus Family history of arthritis Family history of kidney disease Social History Social History Social History: the patient lives with his . The daughter tells me that he is a DNR. He has 2 children and that his children are the durable power combustion engineer for healthcare. The daughter tells me that he is a DNR. 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 Does not use any alcohol marijuana or illicit drugs. dnr Smoking status: Never smoker Second hand tobacco smoke exposure: No Smoking end date: 08/14/00 Alcohol intake: never Substance use: never
[2021-05-23 21:13] LABS: Glucose Point of Care 198 mg/dl (65-105)
[2021-05-23] MEDS: CARBIDOPA/LEVODOPA 25/100 MG TABLET 2 TABLET PO (21:45)
[2021-05-23] MEDS: predniSONE 20 MG TABLET PO (21:45)
[2021-05-23] MEDS: GABAPENTIN 400 MG CAPSULE 800 MG PO (21:45)
[2021-05-23] MEDS: LORATADINE 10 MG TABLET PO (21:45)
[2021-05-23] MEDS: ROSUVASTATIN 10 MG TABLET PO (21:46)
[2021-05-24] VITALS (10 sets, daily range): BP systolic 142–174; BP diastolic 61–72; PULSE 61–81; RESP 18–20; TEMP 36.6–37.5; O2SAT 88–95
--- NOTE | 2021-05-24 | ECHO_ITS ---
Patient Info Name: Lj Kelley Age: 80 years : 1940 Gender: Male Ht: 63 in Wt: 131 lbs BSA: 1.63 m2 HR: 67 bpm Heart Rhythm: Sinus Rhythm Exam Date: 05/24/2021 11:11 AM Exam Location: [facility] Pulmonary Exam Room: 246 Patient Status: Outpatient Admit Date: 05/22/2021 Staff Ordering Physician: Toni Dyson Fourth Officer: Jennifer Fernando RDCS Attending Provider: Toni Dyson Referring Physician: Kiel HUMPHREY; Exam Type: CA echo doppler color flow Study Info Indications - gait instabillity Complete two-dimensional, color flow and Doppler transthoracic echocardiogram is performed. Strain analysis performed. Summary 1. Complete two-dimensional, color flow and Doppler transthoracic echocardiogram is performed. 2. Left ventricular chamber dimension is normal. 3. Left ventricular systolic function is normal, estimated at 65-70%. 4. There is moderately increased left ventricular wall thickness. 5. Right atrial chamber dimension is mildly enlarged. 6. Right ventricular chamber dimension is moderately enlarged. 7. Right ventricular systolic function is normal. 8. There is mild tricuspid valve regurgitation. 9. Mild pulmonary hypertension, estimated pulmonary arterial systolic pressure is 43 mmHg. Left Ventricle Left ventricular chamber dimension is normal. Left ventricular systolic function is normal, estimated at 65-70%. There is moderately increased left ventricular wall thickness. The left ventricular diastolic function is grade I diastolic dysfunction. Global longitudinal strain is mildly elevated at -17 %. Right Ventricle Right ventricular chamber dimension is moderately enlarged. Right ventricular systolic function is normal. Left Atria Left atrial chamber dimension is normal. Right Atria Right atrial chamber dimension is mildly enlarged. Aortic Valve The aortic valve is trileaflet. There is no aortic valve stenosis. There is no aortic valve regurgitation. Pulmonic Valve The pulmonic valve is not well visualized. There is trace pulmonic regurgitation. Mitral Valve The mitral valve has normal leaflets. There is mild mitral valve regurgitation. The mitral valve annulus is mildly calcified. Tricuspid Valve The tricuspid valve leaflets are normal. There is mild tricuspid valve regurgitation. Mild pulmonary hypertension, estimated pulmonary arterial systolic pressure is 43 mmHg. Pericardium/Pleural The pericardium appears normal. There is small pericardial effusion. Inferior Vena Cava Normal inferior vena cava with <50% collapse upon inspiration consistent with elevated right atrial pressure, 10 mmHg. Aorta The aortic root size at the sinus of Valsalva is normal. There is mild-moderate aortic atherosclerosis. Left Ventricular Outflow Tract Name Value Normal LVOT 2D LVOT Diameter 2.0 cm LVOT Doppler LVOT Peak Gradient 4 mmHg LVOT Mean Gradient 2 mmHg LVOT VTI 21 cm LVOT VTI/AV VTI Ratio 0.7 LVOT Stroke Volume
[2021-05-24 08:13] LABS: Glucose Point of Care 244 mg/dl (65-105)
[2021-05-24] MEDS: INSULIN ASPART (*BKC) 100 UNITS/ML SUB-Q ×4 (08:43→23:02)
[2021-05-24] MEDS: GABAPENTIN 400 MG CAPSULE 800 MG PO ×2 (08:43→17:36)
[2021-05-24] MEDS: METOPROLOL TARTRATE 25 MG TABLET PO ×2 (08:44→15:27)
[2021-05-24] MEDS: CARBIDOPA/LEVODOPA 25/100 MG TABLET 2 TABLET PO ×3 (08:44→17:35)
[2021-05-24] MEDS: OPTI-GEN TAB 1 TABLET PO (08:44)
[2021-05-24] MEDS: FEBUXOSTAT 40 MG TABLET PO (08:44)
[2021-05-24] MEDS: predniSONE 20 MG TABLET PO ×2 (08:45→17:36)
[2021-05-24] MEDS: PANTOPRAZOLE 40 MG TABLET PO (08:45)
[2021-05-24] MEDS: hydroCHLOROthiazide 25 MG TABLET PO (08:45)
[2021-05-24 12:17] LABS: Glucose Point of Care 247 mg/dl (65-105)
--- NOTE | 2021-05-24 13:04 | P.PNIM_ITS ---
Progress Note: A&P Assessment and Plan (1) Closed bimalleolar fracture of right ankle: Code(s): S82.841A - Displaced bimalleolar fracture of right lower leg, initial encounter for closed fracture Status: Acute Assessment and Plan: * Per ankle xray * ortho has been consulted. * partial cast to the right ankle. * Multiple falls reported will likely need rehab * frequent falls possibly from his Parkinson's or peripheral neuropathy from his diabetes. * PT and OT * pain management. * educational coordinator for possible placement. * Ortho to manage post care * antiemetic for nausea * Surgical services rescheduled for 05/25/[address] Sandoval * Echo shows EF of 65-70% (2) COVID-19: Code(s): U07.1 - COVID-19 Status: Acute Assessment and Plan: * Known exposure from * COVID swab positive in ed * Repeat PCR still pending * remains symptom free * no need to start covid medications at this time * Vaccinated with Maderna (3) COPD (chronic obstructive pulmonary disease): Code(s): J44.9 - Chronic obstructive pulmonary disease, unspecified Status: Chronic Assessment and Plan: * No acute exacerbation * albuterol ordered * No reported wheezes, shortness of breath, or sputum (4) Parkinsons: Code(s): G20 - Parkinson's disease Status: Chronic Assessment and Plan: * carbidopa levodopa 50mg PO TID with meal (5) Peripheral neuropathy: Code(s): G62.9 - Polyneuropathy, unspecified Status: Acute Assessment and Plan: * gabapentin 800mg BID PO * Education (6) Frequent falls: Code(s): R29.6 - Repeated falls Status: Acute Assessment and Plan: * PT OT * Fall precautions (7) Type 2 diabetes mellitus with hyperglycemia, with long-term current use of insulin: Code(s): E11.65 - Type 2 diabetes mellitus with hyperglycemia; Z79.4 - ferry terminal agent (current) use of insulin Status: Acute Assessment and Plan: * Glucose 112 * Accu-Cheks AC and HS * A1c 7.3 * sliding scale insulin. * Hypoglycemia protocol * Adjust medications as needed (8) Essential hypertension: Code(s): I10 - Essential (primary) hypertension Status: Chronic Assessment and Plan: * BP 174/72 * Continue home metoprolol 25mg PO Rosalie, will increase to 50 PO daily * Continue HCTZ 25mg PO daily * Trend BP * Adjust medications as needed (9) Pure hypercholesterolemia, unspecified: Code(s): E78.00 - Pure hypercholesterolemia, unspecified Status: Acute Assessment and Plan: * Continue home Rosuvastatin 10mg PO daily * Lipid panel in the am * Adjust medications as needed (10) Chronic kidney disease (CKD) stage G3b/A3, moderately decreased glomerular filtration rate (GFR) between 30-44 mL/min/1.73 square meter and albuminuria creatinine ratio greater than 300 mg/g: Code(s): N18.3 - Chronic kidney disease, stage 3 (moderate) Status: Acute Assessment and Plan: * BUN/Cr 44/1.50 * Trend labs * Avoid nephrotoxic medications * patient appears to be at his baseline and it is stable. (11) Diabetic polyneuropathy associated with type 2 diabetes mellitus: Code(s): E11.42 - Type 2 diabetes mellitus with diabe
--- NOTE | 2021-05-24 13:04 | PM.IMPN ---
Progress Note: A&P Assessment and Plan (1) Closed bimalleolar fracture of right ankle: Code(s): S82.841A - Displaced bimalleolar fracture of right lower leg, initial encounter for closed fracture Status: Acute Assessment and Plan: Per ankle xray ortho has been consulted. partial cast to the right ankle. Multiple falls reported will likely need rehab frequent falls possibly from his Parkinson's or peripheral neuropathy from his diabetes. PT and OT pain management. senior marketing coordinator for possible placement. Ortho to manage post care antiemetic for nausea Surgical services rescheduled for 05/25/[address] Sandoval Echo shows EF of 65-70% (2) COVID-19: Code(s): U07.1 - COVID-19 Status: Acute Assessment and Plan: Known exposure from COVID swab positive in ed Repeat PCR still pending remains symptom free no need to start covid medications at this time Vaccinated with Maderna (3) COPD (chronic obstructive pulmonary disease): Code(s): J44.9 - Chronic obstructive pulmonary disease, unspecified Status: Chronic Assessment and Plan: No acute exacerbation albuterol ordered No reported wheezes, shortness of breath, or sputum (4) Parkinsons: Code(s): G20 - Parkinson's disease Status: Chronic Assessment and Plan: carbidopa levodopa 50mg PO TID with meal (5) Peripheral neuropathy: Code(s): G62.9 - Polyneuropathy, unspecified Status: Acute Assessment and Plan: gabapentin 800mg BID PO Education (6) Frequent falls: Code(s): R29.6 - Repeated falls Status: Acute Assessment and Plan: PT OT Fall precautions (7) Type 2 diabetes mellitus with hyperglycemia, with long-term current use of insulin: Code(s): E11.65 - Type 2 diabetes mellitus with hyperglycemia; Z79.4 - intermediate school teacher (current) use of insulin Status: Acute Assessment and Plan: Glucose 112 Accu-Cheks AC and HS A1c 7.3 sliding scale insulin. Hypoglycemia protocol Adjust medications as needed (8) Essential hypertension: Code(s): I10 - Essential (primary) hypertension Status: Chronic Assessment and Plan: BP 174/72 Continue home metoprolol 25mg PO Rosalie, will increase to 50 PO daily Continue HCTZ 25mg PO daily Trend BP Adjust medications as needed (9) Pure hypercholesterolemia, unspecified: Code(s): E78.00 - Pure hypercholesterolemia, unspecified Status: Acute Assessment and Plan: Continue home Rosuvastatin 10mg PO daily Lipid panel in the am Adjust medications as needed (10) Chronic kidney disease (CKD) stage G3b/A3, moderately decreased glomerular filtration rate (GFR) between 30-44 mL/min/1.73 square meter and albuminuria creatinine ratio greater than 300 mg/g: Code(s): N18.3 - Chronic kidney disease, stage 3 (moderate) Status: Acute Assessment and Plan: BUN/Cr 44/1.50 Trend labs Avoid nephrotoxic medications patient appears to be at his baseline and it is stable. (11) Diabetic polyneuropathy associated with type 2 diabetes mellitus: Code(s): E11.42 - Type 2 diabetes mellitus with diabetic polyneuropathy Status: Chronic Assessment and Plan: gabapentin 800mg PO BID Time Spent With Patient Time with patient: Greater than 35 minutes Subjective Date/time seen: 05/24/21 13:04 Interval history: Date of Service 05/23/21 10:50 Patient is an 80 year old male that is her for a fall and suffered an ankle fracture. He does not have many complaints today. He is concerned about his ankle. He denies having pain. He denies shortness of breath, chest pain, palpitations, nausea, vomiting, diarrhea, constipation, or weakness. He does have some lightheadedness and dizziness when he changes posit
--- NOTE | 2021-05-24 14:24 | PCOTNOTE ---
Attempted to see patient this pm, however patient declined. Pt reported already completing ADLs. Pt declined exercises stating, I just did some. I just got settled back in bed. I need a break. I'm having surgery tomorrow.
--- NOTE | 2021-05-24 15:37 | WPDANESEPPF ---
Anes - Initial Pre Proc Eval Procedure: Operation Date: 05/25/21 15:30 Proposed Procedures p Open Reduction Internal Fixation Right Ankle Fracture - Oscar Sandoval MD Date/Time: 05/24/21 15:37 Surgeon: FABRICIO Hood Pre Op Diagnosis: Ankle fx, orthostatic hypotension Patient Data Age: 80 Gender: M Height: 1.83 m Weight: 117.1 kg Last Vital Signs Temp 36.7 C 05/24/21 12:00 Pulse 70 05/24/21 15:27 Resp 18 05/24/21 12:00 BP 174/72 H 05/24/21 12:00 Pulse Ox 93 05/24/21 15:28 Allergies Allergy/AdvReac Type Severity Reaction Status Date / Time No Known Allergies Allergy Unverified 11/26/16 14:07 Home Medications Medication Instructions Recorded Confirmed Type aspirin 81 mg tablet,delayed 81 mg PO DAILY 02/06/20 05/22/21 History release blood sugar diagnostic #200 each 02/06/20 05/22/21 Rx furosemide 40 mg tablet 40 mg PO BID tablet 02/06/20 05/22/21 History gabapentin 400 mg capsule 800 mg PO BID cap 02/06/20 05/22/21 History hydrochlorothiazide 25 mg tablet 25 mg PO DAILY 02/06/20 05/22/21 History insulin syringe-needle U-100 0.5 #200 each 02/06/20 05/22/21 Rx mL 31 gauge x 12/27 levocetirizine 5 mg tablet 10 mg PO QPM tablet 02/06/20 05/22/21 History metoprolol tartrate 25 mg tablet 25 mg PO DAILY 02/06/20 05/22/21 History gwhnuujr-ywb-ypzka acid 300 1 tablet PO DAILY 02/06/20 05/22/21 History mcg-lycopene 600 mcg-lutein 300 mcg tablet omeprazole 20 mg capsule,delayed 20 mg PO DAILY 02/06/20 05/22/21 History release rosuvastatin 10 mg tablet 10 mg PO QPM tablet 02/06/20 05/22/21 History sennosides 8.6 mg-docusate sodium 1 tab-cap PO BID PRN 02/06/20 05/22/21 History 50 mg capsule febuxostat 40 mg tablet 40 mg PO DAILY 12/17/20 05/22/21 History insulin human U-100 NPH-regulr 30 unit SUB-Q BID ml 04/27/21 05/22/21 History 70-30 mix 100 unit/mL subcutaneous susp albuterol sulfate 2 puff INHALATION QID PRN #8.5 g 05/18/21 05/22/21 Rx azithromycin [Zithromax] See Rx Instructions .ROUTE 05/18/21 05/22/21 Rx .COMPLEX #6 tablet prednisone 20 mg PO BID 5 Days #10 tablet 05/18/21 05/22/21 Rx carbidopa-levodopa 2 tablet PO TID 05/23/21 05/23/21 History Laboratory Tests 05/23/21 05/23/21 05/23/21 16:43 18:55 21:06 POC Capillary Glucose 178 mg/dl H mg/dl 198 mg/dl H mg/dl (65-105) (65-105) SARS-CoV-2 RNA (RT-PCR) Pending 05/24/21 05/24/21 08:08 11:52 POC Capillary Glucose 244 mg/dl H mg/dl 247 mg/dl H mg/dl (65-105) (65-105) SARS-CoV-2 RNA (RT-PCR) Patient hx anesthesia problems: none Family hx anesthesia problems: none Results Review: All pre-operative results and documents have been reviewed as part of the pre-operative evaluation. [facility] Past Medical History Medical History Chronic kidney disease (CKD) stage G3b/A3, moderately decreased glomerular filtration rate (GFR) between 30-44 mL/min/1.73 square meter and albuminuria creatinine ratio greater than 300 mg/g COPD (chronic obstructive pulmonary disease) Dementia Diabetic polyneuropathy associated with type 2 diabetes mellitus Essential hypertension Kidney stones Parkinsons Pure hypercholesterolemia, unspecified Type 2 diabetes mellitus with hyperglycemia, with long-term current use of insulin Surgical History Surgical History H/O lithotripsy H/O Spinal surgery History of ankle surgery on the left History of appendectomy History of cardiac catheterization treated medically without any stents. History of total knee arthroplasty S/P left knee arthroscopy Family History Family History Mother Hypertension Sibling Hypertension Family history of diabetes mellitus in first degree relative Father Family history of malignant neoplasm Other Diabetes mellitus
[2021-05-24 17:19] LABS: Glucose Point of Care 217 mg/dl (65-105)
[2021-05-24] MEDS: HYDROcodone/acetaminophen (*CRX) 5-325 MG TABLET 1 TAB PO (17:34)
[2021-05-24] MEDS: ROSUVASTATIN 10 MG TABLET PO (17:36)
[2021-05-24] MEDS: LORATADINE 10 MG TABLET PO (17:37)
[2021-05-24 20:20] LABS: SARS-CoV-2 RNA PCR Positive
[2021-05-24] MEDS: ALBUTEROL SULFATE (*SP) INHALER 2 PUFF INHALATION (20:50)
[2021-05-24 21:34] LABS: Glucose Point of Care 265 mg/dl (65-105)
[2021-05-25] VITALS (21 sets, daily range): BP systolic 113–165; BP diastolic 44–92; PULSE 62–104; RESP 18–27; TEMP 36.2–37.2; O2SAT 89–98; BMI 33.0
[2021-05-25] MEDS: ALBUTEROL SULFATE (*SP) INHALER 2 PUFF INHALATION ×4 (08:13→21:16)
--- NOTE | 2021-05-25 08:20 | PM.IMPN ---
Progress Note: A&P Assessment and Plan (1) Closed bimalleolar fracture of right ankle: Code(s): S82.841A - Displaced bimalleolar fracture of right lower leg, initial encounter for closed fracture Status: Acute Assessment and Plan: Per ankle xray ortho has been consulted. partial cast to the right ankle. Multiple falls reported will likely need rehab frequent falls possibly from his Parkinson's or peripheral neuropathy from his diabetes. PT and OT pain management. membership coordinator for possible placement. Ortho to manage post care antiemetic for nausea Surgical services rescheduled for 05/25/[address] Sandoval Echo shows EF of 65-70% (2) COVID-19: Code(s): U07.1 - COVID-19 Status: Acute Assessment and Plan: Known exposure from COVID swab positive in ed Repeat PCR positive remains symptom free Oxygen has been turned down to RA and saturations have been 92-93 on room air with ear sensor ABG ordered to determine accuracy, since patient does not look short of breath or have any increase work of breathing Labs are pending HOB 30 degrees Chest xray: emphysema in the right upper and lower lobes no need to start covid medications at this time Vaccinated with Mad[place] October/November (3) COPD (chronic obstructive pulmonary disease): Code(s): J44.9 - Chronic obstructive pulmonary disease, unspecified Status: Chronic Assessment and Plan: No acute exacerbation Could be turning into an exacerbation Increase sputum production Albuterol and Spiriva ordered Chest xray saw emphysema Outpatient follow up will need to be done post discharge Sputum culture (4) Parkinsons: Code(s): G20 - Parkinson's disease Status: Chronic Assessment and Plan: carbidopa levodopa 50mg PO TID with meal (5) Peripheral neuropathy: Code(s): G62.9 - Polyneuropathy, unspecified Status: Acute Assessment and Plan: gabapentin 800mg BID PO Education (6) Frequent falls: Code(s): R29.6 - Repeated falls Status: Acute Assessment and Plan: PT OT Fall precautions (7) Type 2 diabetes mellitus with hyperglycemia, with long-term current use of insulin: Code(s): E11.65 - Type 2 diabetes mellitus with hyperglycemia; Z79.4 - snf (current) use of insulin Status: Acute Assessment and Plan: Glucose 212 Accu-Cheks AC and HS A1c 7.3 sliding scale insulin. Hypoglycemia protocol Adjust medications as needed (8) Essential hypertension: Code(s): I10 - Essential (primary) hypertension Status: Chronic Assessment and Plan: BP 154/67 Continue home metoprolol 25mg PO Daily, will increase to 50 PO daily Continue HCTZ 25mg PO daily Trend BP Adjust medications as needed (9) Pure hypercholesterolemia, unspecified: Code(s): E78.00 - Pure hypercholesterolemia, unspecified Status: Acute Assessment and Plan: Continue home Rosuvastatin 10mg PO daily Lipid panel in the am Adjust medications as needed (10) Chronic kidney disease (CKD) stage G3b/A3, moderately decreased glomerular filtration rate (GFR) between 30-44 mL/min/1.73 square meter and albuminuria creatinine ratio greater than 300 mg/g: Code(s): N18.3 - Chronic kidney disease, stage 3 (moderate) Status: Acute Assessment and Plan: BUN/Cr Trend labs Avoid nephrotoxic medications patient appears to be at his baseline and it is stable. (11) Diabetic polyneuropathy associated with type 2 diabetes mellitus: Code(s): E11.42 - Type 2 diabetes mellitus with diabetic polyneuropathy Status: Chronic Assessment and Plan: gabapentin 800mg PO BID Time Spent With Patient Time with patient: Greater than 35 minutes Subjective Date/time seen: 05/25/21 08
[2021-05-25 08:21] LABS: Glucose Point of Care 212 mg/dl (65-105)
[2021-05-25] MEDS: INSULIN ASPART (*BKC) 100 UNITS/ML SUB-Q ×2 (08:50→13:32)
--- NOTE | 2021-05-25 10:42 | WPDHPUPDATE1 ---
History and Physical Update Update Date/Time: 05/25/21 10:42 History and Physical has been reviewed, including an updated exam of the patient. There are NO changes in the patient's condition. Risks, benefits, and alternatives have been discussed and questions answered. Patient agrees to proceed with procedure.
[2021-05-25 11:57] LABS: Glucose Point of Care 204 mg/dl (65-105)
[2021-05-25 12:19] LABS: Alveolar/Arterial O2 Gradient 76.6 mmHg; Base Excess ABG -3.1 mEq/l (+/-2.0); Fractional Inspired Oxygen 21 %; HCO3 ABG 19.4 mEq/l (22.0-26.0); Oxygen Content ABG 12.4 %vol (16.0-22.0); Oxyhemoglobin 75.9 % THb (90.0-100.0); PCO2 ABG 27.1 mmHg (35.0-45.0); PO2 FiO2 Ratio Arterial Blood 1.94 %; Total Hemoglobin 11.6 g/dL (12.0-18.0); pH ABG 7.472 (7.350-7.450)
[2021-05-25 12:22] LABS: Device ROOM AIR; Modified Allen's Test Pass; Oxygen Saturation ABG 80.5 % (95.0-100.0); PO2 ABG 40.7 mmHg (80.0-100.0); Site Drawn RIGHT RADIAL
[2021-05-25 12:39] LABS: Hematocrit 35.2 % (42.0-52.0); Hemoglobin 11.2 g/dL (14.0-18.0); Mean Corpuscular HGB Conc 31.8 g/dl (32-36); Mean Corpuscular Hemoglobin 26.5 pg (26-34); Mean Corpuscular Volume 83.2 fl (80-100); Mean Platelet Volume 10.7 fl (7.4-10.4); Platelet Count Result 266 k/mm3 (150-375); Red Blood Count 4.23 M/mm3 (4.6-6.20); Red Cell Distribution Width 14.5 % (11.5-14.5); White Blood Count 22.3 K/mm3 (4.5-10.0)
[2021-05-25 13:05] LABS: Cholesterol 95 mg/dL (0-200); HDL Direct 29 mg/dL; Triglycerides 140 mg/dL (<150)
[2021-05-25 13:13] LABS: Band Neutrophils Percent 1 % (0-6); Lymphocytes Absolute Manual 0.66 K/mm3 (1.1-4.5); Monocytes Absolute Manual 0.44 K/mm3 (0.1-0.90); Monocytes Percent Manual 2 % (3-9); Neutrophils Absolute Manual 21.18 K/mm3 (1.3-6.7); Neutrophils Percent Manual 94 % (46-73); Platelet Estimate Adequate (Adequate); Total Cells Counted 100
[2021-05-25 13:16] LABS: LDL Cholesterol Direct 38 mg/dL
--- NOTE | 2021-05-25 14:11 | PC.NURSE ---
Pt was transferred via bed to surgery at 1411.
[2021-05-25] MEDS: ceFAZolin SODIUM 1 GM VIAL 2 GM IV PUSH (14:57)
--- NOTE | 2021-05-25 15:00 | PCPTNOTE ---
The patient treatment was not able to be completed on 05/25/2021 due to patient out of room for surgery. Will await new orders to resume PT.
[2021-05-25 15:55] LABS: Alanine Aminotransferase 20 U/L (4-50); Albumin Level 3.6 g/dL (3.5-5.1); Alkaline Phosphatase 97 U/L (38-126); Anion Gap 11 mmol/L (8-16); Aspartate Amino Transferase 46 U/L (17-59); Bilirubin,Total 0.4 mg/dL (0.2-1.3); Blood Urea Nitrogen 57 mg/dL (9-20); Calcium 9.7 mg/dL (8.4-10.2); Carbon Dioxide 26 mmol/L (22-30); Chloride 97 mmol/L (98-107); Estimated CRCL calculation 40 ml/min; Estimated Glomerular Filt Rate 39; Glucose 206 mg/dL (65-110); Magnesium 1.9 mg/dL (1.6-2.3); Potassium 4.6 mmol/L (3.4-5.0); Sodium 134 mmol/L (137-145)
[2021-05-25] MEDS: LACTATED RINGERS 1,000 ML 30 ML IV CONT (16:34)
[2021-05-25 16:43] LABS: Glucose Point of Care 184 mg/dl (65-105)
--- NOTE | 2021-05-25 16:45 | PCRCNOTE ---
Window of time for administration has passed. See next scheduled administration.
--- NOTE | 2021-05-25 16:54 | P.OP_ITS ---
Procedure Note - Detailed Date of Procedure 05/25/21 Pre-op Diagnosis Displaced right ankle bimalleolar fracture dislocation. Post-op Diagnosis same Procedure Performed ORIF bimalleolar ankle fracture, right. Surgeon Oscar Sandoval MD Automatic Lathe Setter Holli Piper PA-C Anesthesia general Indications Displaced bimalleolar fracture reduced in the emergency room. Admitted for definitive management. Highly unstable fracture. Findings Good bone quality. Anatomic reduction. Intact syndesmosis. Mild swelling. Posterior medial ecchymosis and fracture blisters moderately. Asymptomatic COVID 19 positive with vaccine. Intraoperative precautions taken. Description of Procedure A general anesthetic was administered. The limb was prepped and draped in the usual sterile fashion with a well-padded tourniquet high on the thigh. A bump was placed under the hip. The limb was exsanguinated and the tourniquet inflated to 300 millimeters of mercury during the procedure. A longitudinal incision was created at the distal fibula. Careful dissection was carried down to bone. Perineal nerve branches were protected. The fracture was carefully exposed. Callus and debris was irrigated from the wound. The fracture was brought out to length. Reduction was accomplished with the reduction forceps. The fixation plate was contoured. Fixation was performed with a combination of cortical and cancellous screws. Two locking screws were used distally. Fluoroscopy was used throughout the procedure to confirm anatomic reduction and appropriate placement of the implants The medial malleolus was exposed with a longitudinal incision. The fracture was cleared of debris and irrigated. Anatomic reduction was obtained with the reduction tool. Biplanar fluoroscopy was used to assess the fracture reduction and guide placement of the K-wire. Two K-wires were placed parallel across the fracture site. The screw lengths were measured and drilled distally only. The long, partially threaded screws were placed, and the K-wires removed.. The tourniquet was released. Meticulous hemostasis was obtained. Wound was closed in layers with 2-0 Vicryl suture 3-0 Monocryl suture and adrianna. A sterile splint with padding was applied. The patient was extubated and brought to the recovery room in stable condition. There were no complications. Physician financial administrative assistant, Holli Leung PA-C, required for surgery; including patient positioning, draping, tissue retraction, assisting fracture reduction, wound closure, and dressing placement. Implants Synthes small fragment 1/3 tubular locking plate 7 hole. Cortical and cancellous screws. Two locking screws. 4.0 mm partially-threaded cannulated screws medially 42 mm length. Estimated Blood Loss 5 Tourniquet Time 56 Urine Output 600 Drains No Packing No Pathology none sent Complications No immediate complications Condition stable Disposition PACU
--- NOTE | 2021-05-25 17:25 | SUR.PHASEI ---
Addendum entered by Mack Mcclellan RN 05/25/21 17:53: 1735 PT DID NOT TOLERATE MASK VERY WELL. PUT BACK ON NONREBREATHER AT 15 L. Original Note: BIPAP STARTED AT 1725. 07/19 AT 100% RATE 18.
[2021-05-25] MEDS: fentaNYL CITRATE INJ (*CRX) 100 MCG/2 ML VIAL 25 MCG IV PUSH (18:07)
--- NOTE | 2021-05-25 18:09 | SUR.PHASEI ---
O2 LEVELS ARE STAYING AROUND 90%-94% WITH 15L NONREBREATHER. PT NOT TOLERATING CPAP MASK.
--- NOTE | 2021-05-25 19:05 | PC.NURSE ---
This patient, Lj Kelley, was received from [[id number] ] on 05/25/21 at 1905. Patient/family oriented to unit policies and routines
[2021-05-25] MEDS: SODIUM CHLORIDE 0.9% IV 1,000 ML 125 ML IV CONT (20:01)
[2021-05-25] MEDS: ROSUVASTATIN 10 MG TABLET PO (20:05)
[2021-05-25] MEDS: GABAPENTIN 400 MG CAPSULE 800 MG PO (20:05)
[2021-05-25] MEDS: predniSONE 20 MG TABLET PO (20:05)
[2021-05-25] MEDS: LORATADINE 10 MG TABLET PO (20:05)
[2021-05-25] MEDS: CARBIDOPA/LEVODOPA 25/100 MG TABLET 2 TABLET PO (20:05)
[2021-05-25] MEDS: DOCUSATE SODIUM 100 MG CAPSULE PO (20:05)
[2021-05-25] MEDS: HEPARIN SODIUM 5,000 UNITS/ML VIAL 5000 UNITS SUB-Q (20:05)
[2021-05-25] MEDS: ceFAZolin 2 GM/D5W 50 ML 2 GM/50 ML BAG IVPB (22:03)
--- NOTE | 2021-05-25 22:38 | ECG_ITS ---
Measurements Intervals [place] Rate: 101 P: [place]: 0 QRS: 14 QRSD: 90 T: -12 QT: 345 QTc: 448 Interpretive Statements ATRIAL FIBRILLATION WITH RAPID VENTRICULAR RESPONSE BORDERLINE ST-T WAVE ABNORMALITY- INFERIOR LEADS BASELINE ARTIFACT- I, II, III, AVL, AVF, V3-V6 ABNORMAL ECG Electronically Signed On 05-26-2021 7:07:13 CDT by Ovidio Syed D.O.
[2021-05-25] MEDS: REMDESIVIR 200 MG/NS 250 ML 200 MG/250 ML BAG 250 MG IVPB (22:54)
[2021-05-25] MEDS: dilTIAZem HCl INJ 25 MG/5 ML VIAL 10 MG IV PUSH (23:05)
[2021-05-25 23:06] LABS: Prothrombin Time 13.1 Seconds (11.1-14.7)
[2021-05-25 23:21] LABS: Alveolar/Arterial O2 Gradient 625.6 mmHg; Base Excess ABG -4.3 mEq/l (+/-2.0); Fractional Inspired Oxygen 100 %; HCO3 ABG 18.9 mEq/l (22.0-26.0); Oxygen Content ABG 13.9 %vol (16.0-22.0); Oxygen Saturation ABG 91.7 % (95.0-100.0); Oxyhemoglobin 88.9 % THb (90.0-100.0); PCO2 ABG 28.8 mmHg (35.0-45.0); PO2 ABG 58.6 mmHg (80.0-100.0); PO2 FiO2 Ratio Arterial Blood 0.59 %; Total Hemoglobin 11.1 g/dL (12.0-18.0); pH ABG 7.434 (7.350-7.450)
[2021-05-25 23:22] LABS: Device NON-REBREATHER MASK; Site Drawn LEFT RADIAL
[2021-05-26] VITALS (20 sets, daily range): BP systolic 133–153; BP diastolic 56–79; PULSE 53–84; RESP 10–26; TEMP 35.6–36.8; O2SAT 90–97
[2021-05-26 00:34] LABS: Glucose Point of Care 219 mg/dl (65-105)
[2021-05-26] MEDS: HYDROcodone/acetaminophen (*CRX) 5-325 MG TABLET 1 TAB PO (01:01)
[2021-05-26] MEDS: IPRATROPIUM BR 0.02% INH SOLN 0.5 MG/2.5 ML VIAL INHALATION ×4 (01:51→20:28)
[2021-05-26] MEDS: ALBUTEROL SULFATE NEB 2.5 MG/0.5 ML INH INHALATION ×4 (01:51→20:28)
[2021-05-26] MEDS: ceFAZolin 2 GM/D5W 50 ML 2 GM/50 ML BAG IVPB ×2 (05:05→13:29)
[2021-05-26 06:43] LABS: Basophils Percent Auto 0.1 % (0.2-1.2); Hematocrit 32.7 % (42.0-52.0); Hemoglobin 10.4 g/dL (14.0-18.0); Immature Granulocyte Absolute 0.21 K/mm3 (0.00-0.031); Immature Granulocyte Percent A 1.6 % (0-0.5); Lymphocytes Absolute Auto 0.41 K/mm3 (0.9-3.2); Mean Corpuscular HGB Conc 31.8 g/dl (32-36); Mean Corpuscular Hemoglobin 27.4 pg (26-34); Mean Corpuscular Volume 86.1 fl (80-100); Mean Platelet Volume 10.8 fl (7.4-10.4); Monocytes Absolute Auto 0.2 K/mm3 (0.1-0.6); Monocytes Percent Auto 1.6 % (2.6-8.5); Neutrophils Absolute Auto 12.7 K/mm3 (1.3-6.7); Neutrophils Percent Auto 93.7 % (45.5-73.1); Platelet Count Result 175 k/mm3 (150-375); Red Cell Distribution Width 14.7 % (11.5-14.5); White Blood Count 13.5 K/mm3 (4.5-10.0)
[2021-05-26 07:07] LABS: Anion Gap 11 mmol/L (8-16); Blood Urea Nitrogen 66 mg/dL (9-20); Carbon Dioxide 21 mmol/L (22-30); Chloride 100 mmol/L (98-107); Estimated CRCL calculation 38 ml/min; Estimated Glomerular Filt Rate 36; Glucose 390 mg/dL (65-110); Potassium 4.6 mmol/L (3.4-5.0); Sodium 132 mmol/L (137-145)
--- NOTE | 2021-05-26 07:39 | PCOTNOTE ---
Attempted OT re-evaluation, per RN patient has increased O2 needs at this time and to attempt therapy tomorrow, will follow.
--- NOTE | 2021-05-26 07:39 | PCPTNOTE ---
Patient on hold for today due to increased respiratory needs. Will check in again tomorrow.
[2021-05-26 07:40] LABS: Alanine Aminotransferase 14 U/L (4-50); Estimated CRCL calculation 38 ml/min; Estimated Glomerular Filt Rate 36
[2021-05-26 08:09] LABS: INR 1.1
[2021-05-26] MEDS: INSULIN ASPART (*BKC) 100 UNITS/ML SUB-Q ×3 (08:50→17:44)
[2021-05-26] MEDS: CARBIDOPA/LEVODOPA 25/100 MG TABLET 2 TABLET PO ×3 (08:52→17:42)
[2021-05-26] MEDS: DOCUSATE SODIUM 100 MG CAPSULE PO ×2 (08:53→17:43)
[2021-05-26] MEDS: FEBUXOSTAT 40 MG TABLET PO (08:54)
[2021-05-26] MEDS: GABAPENTIN 400 MG CAPSULE 800 MG PO ×2 (08:54→17:42)
[2021-05-26] MEDS: HEPARIN SODIUM 5,000 UNITS/ML VIAL 5000 UNITS SUB-Q ×2 (08:54→21:22)
[2021-05-26] MEDS: METOPROLOL TARTRATE 50 MG TAB PO ×2 (08:55→21:23)
[2021-05-26] MEDS: hydroCHLOROthiazide 25 MG TABLET PO (08:55)
[2021-05-26] MEDS: OPTI-GEN TAB 1 TABLET PO (08:56)
[2021-05-26] MEDS: PANTOPRAZOLE 40 MG TABLET PO (08:57)
[2021-05-26 12:21] LABS: Glucose Point of Care 387 mg/dl (65-105)
[2021-05-26 12:22] LABS: Glucose Point of Care 366 mg/dl (65-105)
--- NOTE | 2021-05-26 12:27 | PM.CNCAR ---
Assessment and Plan Assessment and plan (1) Atrial fibrillation with RVR: Code(s): I48.91 - Unspecified atrial fibrillation Status: Acute Assessment and Plan: New diagnosis transient atrial fibrillation with rapid ventricular response currently on diltiazem infusion maintaining sinus rhythm. He is asymptomatic in this regard. CHADS2-Vasc Score 5. Systemic anticoagulation would be advised with recurrent atrial fibrillation given elevated stroke risk, however, given patient's longstanding history of multiple frequent falls with injury he is not a reasonable candidate. Therefore, aspirin 81 mg daily advised. Bleeding risk outweighs embolic stroke risk. -discontinue diltiazem infusion. Change metoprolol tartrate 50 mg twice daily as heart rate permits. Hold for heart rate less than 60 beats per minute. -DVT prophylaxis postoperatively per Orthopedic surgery. -Etiology of atrial fibrillation multifactorial given patient's age, multiple risk factors recent fall, trauma postop status, and active COVID-19 infection. -2D echocardiogram with preserved LV systolic function EF 65-70% moderate LVH mild pulmonary hypertension RVSP 43 mm Hg. No significant valvular heart disease as contribution. Conservative management advised given comorbidities. Options fairly limited given inability to anticoagulate with reasonable safety. (2) Frequent falls: Code(s): R29.6 - Repeated falls Status: Acute Assessment and Plan: As above, patient describes symptoms suggestive of orthostasis but may also be function of autonomic dysfunction in relation to Parkinson's disease. Nonetheless, he is not a longer-term systemic anticoagulation candidate. (3) COVID-19: Code(s): U07.1 - COVID-19 Status: Acute Assessment and Plan: Continue isolation per protocol. Management per primary service. Respiratory status appears to be deteriorating. Chest x-ray suggestive of degree of vascular congestion intermixed with multifocal pneumonia progressed compared to presentation. Give IV Lasix 40 mg x 1 if any further deterioration. Repeat chest x-ray in a.m.. I would discontinue hydrochlorothiazide for now. (4) Parkinsons: Code(s): G20 - Parkinson's disease Status: Chronic Assessment and Plan: Continue management per primary service. (5) Essential hypertension: Code(s): I10 - Essential (primary) hypertension Status: Chronic Assessment and Plan: Stable. Continue medical therapy. (6) Closed bimalleolar fracture of right ankle: Code(s): S82.841A - Displaced bimalleolar fracture of right lower leg, initial encounter for closed fracture Status: Acute Assessment and Plan: Per Orthopedic surgery. Status post ORIF. Postoperative DVT prophylaxis. (7) Chronic kidney disease (CKD) stage G3b/A3, moderately decreased glomerular filtration rate (GFR) between 30-44 mL/min/1.73 square meter and albuminuria creatinine ratio greater than 300 mg/g: Code(s): N18.3 - Chronic kidney disease, stage 3 (moderate) Status: Acute Assessment and Plan: Stable, monitor closely particular lecture lytes given atrial fibrillation to maintain potassium around 4 and magnesium around 2 respectively. (8) Type 2 diabetes mellitus with hyperglycemia, with long-term current use of insulin: Code(s): E11.65 - Type 2 diabetes mellitus with hyperglycemia; Z79.4 - [facility] (current) use of insulin Status: Acute Assessment and Plan: Per primary service. (9) Pure hypercholesterolemia, unspecified: Code(s): E78.00 - Pure hypercholesterolemia, unspecified Status: Acute Assessment and Plan: Continue statin therapy. History of Present Illness History of Present Illness Consult date/time: Date of service: 05/26/21 12:27 Cardiology consultation at the request of Marly Edmondson APN for our opinion regarding atrial fibrillation with rapid ventricular response. Reque
--- NOTE | 2021-05-26 14:26 | WPDANESPN ---
Anes - Prog Note Post-Op Date/Time: 05/26/21 14:26 Cardiovascular status: other (management per ICU team) Respiratory status: other (management per ICU team) Airway patency: baseline Mental status: baseline Post-Op hydration status: other (management per ICU team) Vital Signs: Last Vital Signs Temp 36.8 C 05/26/21 12:00 Pulse 56 L 05/26/21 14:00 Resp 20 05/26/21 13:38 BP 149/67 H 05/26/21 12:00 Pulse Ox 97 05/26/21 12:00 Pain Score (VAS): 4 I/O: Intake & Output 05/25/21 05/26/21 05/26/21 23:59 07:59 15:59 Intake Total 300 50 Output Total 800 500 Balance -500 -450 Laboratory Tests 05/26/21 06:34 05/26/21 06:33 05/25/21 05/25/21 05/25/21 12:08 16:38 22:01 WBC RBC Hgb Hct MCV MCH MCHC RDW Plt Count MPV Immature Gran % (Auto) Neut % (Auto) Lymph % (Auto) [place] % (Auto) Eos % (Auto) Baso % (Auto) Lymph # (Auto) [place] # (Auto) Eos # (Auto) Baso # (Auto) Abs Immat Gran (auto) Absolute Neuts (auto) Absolute Nucleated RBC Nucleated RBC % PT INR Puncture Site ABG pH ABG pCO2 ABG pO2 ABG PO2/FiO2 Ratio ABG HCO3 ABG O2 Saturation ABG O2 Content ABG Base Excess A-a Gradient Oxyhemoglobin Total Hemoglobin O2 Delivery Device O2 Liters/Min FiO2 Sodium 134 L Potassium 4.6 Chloride 97 L Carbon Dioxide 26 Anion Gap 11 BUN 57 H D Creatinine 1.70 H Estim Creat Clear Calc 40 Estimated GFR 39 L Glucose 206 H POC Capillary Glucose 184 H 219 H Calcium 9.7 Magnesium 1.9 Total Bilirubin 0.4 AST 46 ALT 20 Alkaline Phosphatase 97 Total Protein 6.0 L Albumin 3.6 05/25/21 05/25/21 05/26/21 22:46 23:03 06:33 WBC RBC Hgb Hct MCV MCH MCHC RDW Plt Count MPV Immature Gran % (Auto) Neut % (Auto) Lymph % (Auto) [place] % (Auto) Eos % (Auto) Baso % (Auto) Lymph # (Auto) [place] # (Auto) Eos # (Auto) Baso # (Auto) Abs Immat Gran (auto) Absolute Neuts (auto) Absolute Nucleated RBC Nucleated RBC % PT 13.1 14.0 INR 1.0 1.1 Puncture Site Left radial ABG pH 7.434 ABG pCO2 28.8 L ABG pO2 58.6 L ABG PO2/FiO2 Ratio 0.59 ABG HCO3 18.9 L ABG O2 Saturation 91.7 L ABG O2 Content 13.9 L ABG Base Excess -4.3 A-a Gradient 625.6 Oxyhemoglobin 88.9 L Total Hemoglobin 11.1 L O2 Delivery Device Non-rebreather mask O2 Liters/Min 15.0 FiO2 100 Sodium Potassium Chloride Carbon Dioxide Anion Gap BUN Creatinine Estim Creat Clear Calc Estimated GFR Glucose POC Capillary Glucose Calcium Magnesium Total Bilirubin AST ALT Alkaline Phosphatase Total Protein Albumin 05/26/21 05/26/21 05/26/21 06:33 06:33 06:34 WBC 13.5 H RBC 3.80 L Hgb 10.4 L Hct 32.7 L MCV 86.1 MCH 27.4 MCHC 31.8 L RDW 14.7 H Plt Count 175 MPV 10.8 H Immature Gran % (Auto) 1.6 H Neut % (Auto) 93.7 H Lymph % (Auto) 3.0 L [place] % (Auto) 1.6 L Eos % (Auto) 0.0 Baso % (Auto) 0.1 L Lymph # (Auto) 0.41 L [place] # (Auto) 0.2 Eos # (Auto) 0.0 Baso # (Auto) 0.0 Abs Immat Gran (auto) 0.21 H Absolute Neuts (auto) 12.7 H Absolute Nucleated RBC 0.0 Nucleated RBC % 0.0 PT INR Puncture Site ABG pH ABG pCO2 ABG pO2 ABG PO2/FiO2 Ratio ABG HCO3 ABG O2 Saturation ABG O2 Content ABG Base Excess A-a Gradient Oxyhemoglobin Total Hemoglobin O2 Delivery Device O2 Liters/Min FiO2 Sodium 132 L Potassium 4.6 Chloride 100 Carbon Dioxide 21 L Anion Gap 11 BUN 66 H Creatinine 1.80 H 1.80 H Estim Creat Clear Calc 38 38 Estimated GFR 36 L 36 L Glucose 390 H POC Capillary Glucose Calcium 9.0 Magnesium
--- NOTE | 2021-05-26 16:27 | PM.IMPN ---
Progress Note: A&P Assessment and Plan (1) Closed bimalleolar fracture of right ankle: Code(s): S82.841A - Displaced bimalleolar fracture of right lower leg, initial encounter for closed fracture Status: Acute Assessment and Plan: Per ankle xray ortho has been consulted. partial cast to the right ankle. Multiple falls reported will likely need rehab frequent falls possibly from his Parkinson's or peripheral neuropathy from his diabetes. PT and OT pain management. educational technology coordinator for possible placement. Ortho to manage post care antiemetic for nausea Surgical services rescheduled for 05/25/[address] Sandoval Echo shows EF of 65-70% (2) Atrial fibrillation with RVR: Code(s): I48.91 - Unspecified atrial fibrillation Status: Acute (3) COVID-19: Code(s): U07.1 - COVID-19 Status: Acute (4) Dementia: Code(s): F03.90 - Unspecified dementia without behavioral disturbance Status: Chronic (5) Parkinsons: Code(s): G20 - Parkinson's disease Status: Chronic (6) COPD (chronic obstructive pulmonary disease): Code(s): J44.9 - Chronic obstructive pulmonary disease, unspecified Status: Chronic (7) Type 2 diabetes mellitus with hyperglycemia, with long-term current use of insulin: Code(s): E11.65 - Type 2 diabetes mellitus with hyperglycemia; Z79.4 - residential (current) use of insulin Status: Acute (8) Pure hypercholesterolemia, unspecified: Code(s): E78.00 - Pure hypercholesterolemia, unspecified Status: Acute (9) Essential hypertension: Code(s): I10 - Essential (primary) hypertension Status: Chronic (10) Chronic kidney disease (CKD) stage G3b/A3, moderately decreased glomerular filtration rate (GFR) between 30-44 mL/min/1.73 square meter and albuminuria creatinine ratio greater than 300 mg/g: Code(s): N18.3 - Chronic kidney disease, stage 3 (moderate) Status: Acute Additional Plan POD 1 from ORIF of displaced bimalleolar fracture. AC recommendations per ortho, noted they have ordered heparin. AFib - CHADS2-VASC score 5, recommending AC by cards to hold AC in setting of fall risk. Continue rate control with metoprolol. Frequent Falls - related to Parkinson's, and possibly also orthostatic hypotension. COVID - Day 1 Remdesivir, Day 2 Dexa. COPD at home w/o supplemental O2 at baseline, currently requiring 15L Nonrebreather, and sats in low 90s with this. BiPap is at bedside, will consider if not improving. Q6 breathing t/x ordered. Parkinson's - Continue Sinemet. DM2 CKD3 Time Spent With Patient Time with patient: less than 15 minutes Subjective Date/time seen: 05/26/21 16:27 no acute complaints tolerating diet Review of Systems Review of Systems: All systems reviewed & are unremarkable except as noted in HPI and below Exam Const: General: no acute distress Neck: Neck: no JVD Resp: Effort & Inspection: normal respiratory effort Auscultation: clear to auscultation bilaterally Cardio: Rate: regular rate Rhythm: regular rhythm GI: GI Palp: Yes Soft to palpation and No Tenderness to palpation present (GI) Extrem: Other: RLE bandaged post op Objective Data Vital Signs Vital Signs: Vital Signs - 24 hr 05/25/21 16:34 05/25/21 16:45 05/25/21 17:00 Temperature 97.9 F Pulse Rate 76 75 75 Respiratory Rate 25 H 25 H 25 H Blood Pressure 151/65 H 160/65 H 134/79 Pulse Oximetry 90 90 89 L 05/25/21 17:15 05/25/21 17:30 05/25/21 17:45 Temperature Pulse Rate 71 71 72 Respiratory Rate 27 H 25 H 25 H Blood Pressure 126/62 114/54 L 113/55 L Pulse Oximetry 94 92 92 05/25/21 18:00 05/25/21 18:15 05/25/21 18:50 Temperature 98.2 F Pulse Rate 74 75 80 Respiratory Rate 25 H 25 H 19 Blood Pressure 127/58 L 134/63 129/59 L Pulse Oximetry 94 96 98 05/25/21 20:00 05/25/21 21:18 05/25/21 21:30 Temperature 97.6 F Pulse Rate 99 104 H Respi
[2021-05-26 17:32] LABS: Glucose Point of Care 256 mg/dl (65-105)
[2021-05-26] MEDS: ROSUVASTATIN 10 MG TABLET PO (17:42)
[2021-05-26] MEDS: LORATADINE 10 MG TABLET PO (17:43)
[2021-05-26] MEDS: REMDESIVIR 100 MG/NS 250 ML 100 MG/250 ML BAG 250 MG IVPB (22:59)
[2021-05-26 23:15] LABS: Glucose Point of Care 257 mg/dl (65-105)
[2021-05-27] VITALS (23 sets, daily range): BP systolic 132–166; BP diastolic 59–77; PULSE 54–67; RESP 14–28; TEMP 36.3–36.7; O2SAT 84–95
[2021-05-27] MEDS: IPRATROPIUM BR 0.02% INH SOLN 0.5 MG/2.5 ML VIAL INHALATION ×3 (02:58→15:35)
[2021-05-27] MEDS: ALBUTEROL SULFATE NEB 2.5 MG/0.5 ML INH INHALATION ×4 (02:59→20:36)
[2021-05-27 04:58] LABS: Basophils Percent Auto 0.3 % (0.2-1.2); Hemoglobin 11.6 g/dL (14.0-18.0); Immature Granulocyte Absolute 0.19 K/mm3 (0.00-0.031); Immature Granulocyte Percent A 1.2 % (0-0.5); Lymphocytes Absolute Auto 0.53 K/mm3 (0.9-3.2); Lymphocytes Percent Auto 3.5 % (18.3-44.2); Mean Corpuscular HGB Conc 30.5 g/dl (32-36); Mean Corpuscular Hemoglobin 26.7 pg (26-34); Mean Corpuscular Volume 87.6 fl (80-100); Mean Platelet Volume 10.8 fl (7.4-10.4); Monocytes Absolute Auto 0.5 K/mm3 (0.1-0.6); Monocytes Percent Auto 3.3 % (2.6-8.5); Neutrophils Percent Auto 91.7 % (45.5-73.1); Platelet Count Result 190 k/mm3 (150-375); Red Blood Count 4.34 M/mm3 (4.6-6.20); Red Cell Distribution Width 14.5 % (11.5-14.5); White Blood Count 15.3 K/mm3 (4.5-10.0)
[2021-05-27 05:09] LABS: Prothrombin Time 13.2 Seconds (11.1-14.7)
[2021-05-27 05:21] LABS: Alanine Aminotransferase 9 U/L (4-50); Albumin Level 3.3 g/dL (3.5-5.1); Alkaline Phosphatase 90 U/L (38-126); Anion Gap 10 mmol/L (8-16); Aspartate Amino Transferase 47 U/L (17-59); Bilirubin,Total 0.3 mg/dL (0.2-1.3); Blood Urea Nitrogen 68 mg/dL (9-20); Calcium 9.5 mg/dL (8.4-10.2); Carbon Dioxide 24 mmol/L (22-30); Chloride 101 mmol/L (98-107); Estimated CRCL calculation 43 ml/min; Estimated Glomerular Filt Rate 42; Glucose 323 mg/dL (65-110); Magnesium 2.2 mg/dL (1.6-2.3); Phosphorus 3.4 mg/dL (2.5-4.5); Potassium 4.8 mmol/L (3.4-5.0); Sodium 135 mmol/L (137-145)
--- NOTE | 2021-05-27 08:00 | ECG_ITS ---
Measurements Intervals [place] Rate: 56 P: 18 ID: [id number] QRS: 21 QRSD: 105 T: 0 QT: 440 QTc: 428 Interpretive Statements SINUS BRADYCARDIA BORDERLINE ST-T WAVE ABNORMALITY- INFERIOR LEADS BORDERLINE ECG Electronically Signed On 05-27-2021 13:43:26 CDT by Ovidio Syed D.O.
[2021-05-27] MEDS: DOCUSATE SODIUM 100 MG CAPSULE PO ×2 (08:22→17:10)
[2021-05-27] MEDS: ASPIRIN 81 MG ENTERIC TABLET PO (08:22)
[2021-05-27] MEDS: FEBUXOSTAT 40 MG TABLET PO (08:22)
[2021-05-27] MEDS: HEPARIN SODIUM 5,000 UNITS/ML VIAL 5000 UNITS SUB-Q ×2 (08:22→22:00)
[2021-05-27] MEDS: CARBIDOPA/LEVODOPA 25/100 MG TABLET 2 TABLET PO ×3 (08:22→17:10)
[2021-05-27] MEDS: GABAPENTIN 400 MG CAPSULE 800 MG PO ×2 (08:22→17:10)
[2021-05-27] MEDS: INSULIN ASPART (*BKC) 100 UNITS/ML SUB-Q ×3 (08:23→17:12)
[2021-05-27] MEDS: PANTOPRAZOLE 40 MG TABLET PO (08:23)
[2021-05-27] MEDS: OPTI-GEN TAB 1 TABLET PO (08:23)
[2021-05-27 08:36] LABS: Glucose Point of Care 327 mg/dl (65-105)
--- NOTE | 2021-05-27 10:01 | PM.IMPN ---
Progress Note: A&P Assessment and Plan (1) Closed bimalleolar fracture of right ankle: Code(s): S82.841A - Displaced bimalleolar fracture of right lower leg, initial encounter for closed fracture Status: Acute (2) COVID-19: Code(s): U07.1 - COVID-19 Status: Acute (3) COPD (chronic obstructive pulmonary disease): Code(s): J44.9 - Chronic obstructive pulmonary disease, unspecified Status: Chronic (4) Parkinsons: Code(s): G20 - Parkinson's disease Status: Chronic (5) Peripheral neuropathy: Code(s): G62.9 - Polyneuropathy, unspecified Status: Acute (6) Frequent falls: Code(s): R29.6 - Repeated falls Status: Acute (7) Type 2 diabetes mellitus with hyperglycemia, with long-term current use of insulin: Code(s): E11.65 - Type 2 diabetes mellitus with hyperglycemia; Z79.4 - [facility]FP (current) use of insulin Status: Acute (8) Essential hypertension: Code(s): I10 - Essential (primary) hypertension Status: Chronic (9) Pure hypercholesterolemia, unspecified: Code(s): E78.00 - Pure hypercholesterolemia, unspecified Status: Acute (10) Chronic kidney disease (CKD) stage G3b/A3, moderately decreased glomerular filtration rate (GFR) between 30-44 mL/min/1.73 square meter and albuminuria creatinine ratio greater than 300 mg/g: Code(s): N18.3 - Chronic kidney disease, stage 3 (moderate) Status: Acute (11) Diabetic polyneuropathy associated with type 2 diabetes mellitus: Code(s): E11.42 - Type 2 diabetes mellitus with diabetic polyneuropathy Status: Chronic Additional Plan COVID - Day 1 Remdesivir, Day 2 Dexa. COPD at home w/o supplemental O2 at baseline, currently requiring 15L Nonrebreather, and sats in low 90s with this. BiPap is at bedside, will consider if not improving. Q6 breathing t/x ordered. POD 2 from ORIF of displaced bimalleolar fracture. AC recommendations per ortho, noted they have ordered heparin. AFib, new onset - CHADS2-VASC score 5, recommending AC by cards to hold AC in setting of fall risk. Continue rate control with metoprolol, previously on dilt infusion. Frequent Falls - related to Parkinson's, and possibly also orthostatic hypotension. Parkinson's - Continue Sinemet. DM2 CKD3 Time Spent With Patient Time with patient: less than 15 minutes Subjective Date/time seen: 05/27/21 10:01 continued respiratory distress no acute changes not spiking fevers Review of Systems Review of Systems: All systems reviewed & are unremarkable except as noted in HPI and below Exam Const: General: no acute distress Resp: Effort & Inspection: normal respiratory effort Auscultation: clear to auscultation bilaterally Cardio: Rate: regular rate Rhythm: regular rhythm GI: GI Palp: Yes Soft to palpation and No Tenderness to palpation present (GI) Objective Data Vital Signs Vital Signs: Vital Signs - 24 hr 05/26/21 12:00 05/26/21 13:38 05/26/21 14:00 Temperature 98.3 F Pulse Rate 55 L 54 L 56 L Respiratory Rate 19 20 Blood Pressure 149/67 H Pulse Oximetry 97 05/26/21 16:00 05/26/21 18:00 05/26/21 20:00 Temperature 96.1 F L 97.5 F L Pulse Rate 53 L 62 63 Respiratory Rate 19 25 H Blood Pressure 141/79 H 153/79 H Pulse Oximetry 91 94 05/26/21 20:30 05/26/21 20:33 05/26/21 20:39 Temperature Pulse Rate 60 61 Respiratory Rate 17 18 Blood Pressure Pulse Oximetry 90 05/26/21 21:23 05/26/21 22:00 05/27/21 00:00 Temperature 97.5 F L Pulse Rate 64 59 L 54 L Respiratory Rate 18 Blood Pressure 163/73 H Pulse Oximetry 84 L 05/27/21 02:00 05/27/21 03:01 05/27/21 03:09 Temperature Pulse Rate 62 59 L 60 Respiratory Rate 20 20 Blood Pressure Pulse Oximetry 05/27/21 04:00 05/27/21 06:00 05/27/21 08:41 Temperature 97.4 F L Pulse Rate 61 58 L Respiratory Rate 18 Blood Pressure 166/76 H Pulse Oximetry 90 94 05/14
[2021-05-27] MEDS: BARICITINIB 2 MG TABLET PO (11:12)
[2021-05-27 12:27] LABS: Glucose Point of Care 362 mg/dl (65-105)
--- NOTE | 2021-05-27 13:13 | PM.PNCARD ---
Progress Note: A&P Assessment and Plan (1) Respiratory failure with hypoxia: Code(s): J96.91 - Respiratory failure, unspecified with hypoxia Status: Acute Assessment and Plan: Secondary to COVID pneumonia. This is patient's primary problem which is quite serious with poor prognosis. Respiratory status is not improving at this time. Continue current therapy per primary service. Patient is a DNR. (2) Atrial fibrillation with RVR: Code(s): I48.91 - Unspecified atrial fibrillation Status: Acute Assessment and Plan: New diagnosis transient atrial fibrillation with RVR maintaining sinus rhythm. CHADS2-Vasc Score 5. PT is not a candidate for systemic anticoagulation would be otherwise advised given patient's longstanding history of multiple frequent falls with injury. Bleeding risk outweighs embolic stroke risk. -Aspirin 81 mg daily advised. -Reduce Metoprolol to 25mg BID and hold for heart rate< 60 beats per minute. -DVT prophylaxis postoperatively per Orthopedic surgery. EF 65-70% moderate LVH mild pulmonary hypertension RVSP 43 mm Hg. No significant valvular heart disease as contribution. (3) COVID-19: Code(s): U07.1 - COVID-19 Status: Acute Assessment and Plan: Continue isolation per protocol. Management per primary service. Respiratory status is grave and not improving. Give IV Lasix 40 mg x 1 Repeat chest x-ray in a.m.. . (4) Frequent falls: Code(s): R29.6 - Repeated falls Status: Acute Assessment and Plan: As above, patient describes symptoms suggestive of orthostasis but may also be function of autonomic dysfunction in relation to Parkinson's disease. Nonetheless, he is not a longer-term systemic anticoagulation candidate. (5) Parkinsons: Code(s): G20 - Parkinson's disease Status: Chronic Assessment and Plan: Continue management per primary service. (6) Essential hypertension: Code(s): I10 - Essential (primary) hypertension Status: Chronic Assessment and Plan: Stable. Continue medical therapy. (7) Closed bimalleolar fracture of right ankle: Code(s): S82.841A - Displaced bimalleolar fracture of right lower leg, initial encounter for closed fracture Status: Acute Assessment and Plan: Per Orthopedic surgery. Status post ORIF. Postoperative DVT prophylaxis. (8) Chronic kidney disease (CKD) stage G3b/A3, moderately decreased glomerular filtration rate (GFR) between 30-44 mL/min/1.73 square meter and albuminuria creatinine ratio greater than 300 mg/g: Code(s): N18.3 - Chronic kidney disease, stage 3 (moderate) Status: Acute Assessment and Plan: Stable, monitor closely particular lecture lytes given atrial fibrillation to maintain potassium around 4 and magnesium around 2 respectively. (9) Type 2 diabetes mellitus with hyperglycemia, with long-term current use of insulin: Code(s): E11.65 - Type 2 diabetes mellitus with hyperglycemia; Z79.4 - [facility] (current) use of insulin Status: Acute Assessment and Plan: Per primary service. (10) Pure hypercholesterolemia, unspecified: Code(s): E78.00 - Pure hypercholesterolemia, unspecified Status: Acute Assessment and Plan: Continue statin therapy. Subjective Date/time seen: Date of service: 05/27/21 13:13 Follow-up for paroxysmal atrial fibrillation patient maintaining sinus bradycardia on telemetry. Respiratory status is primary concern without significant improvement remains on high-flow nasal cannula secondary to COVID Pneumonia. The patient complains of fatigue, shortness of breath denies chest pain or palpitations. Feels weak. Intermittently confused per nursing staff. Patient appears somewhat more lethargic but easily awakened answering questions. Metoprolol held this morning due to bradycardia. Patient worked with physical therapy yet became severely hypoxic requiring
[2021-05-27] MEDS: FUROSEMIDE INJ 40 MG/4 ML VIAL IV PUSH (14:44)
--- NOTE | 2021-05-27 16:57 | PM.PNORT ---
Progress Note: A&P Assessment and Plan (1) Closed bimalleolar fracture of right ankle: Code(s): S82.841A - Displaced bimalleolar fracture of right lower leg, initial encounter for closed fracture Status: Acute (2) Dementia: Code(s): F03.90 - Unspecified dementia without behavioral disturbance Status: Chronic (3) Respiratory failure with hypoxia: Code(s): J96.91 - Respiratory failure, unspecified with hypoxia Status: Acute Assessment and Plan: Ankle postoperative day 1 status post ORIF. No issues. Mobilized with therapy as able. Toe-touch weight-bearing only. Respiratory failure secondary to COVID-19. Appreciate medical care. Subjective Subjective Date/Time Seen: 05/27/21 16:57 Interval history: Patient is confused. Discussed care plan with cardiology and nursing staff today. No complaints with regard to the foot and ankle. Exam Narrative: Dressing intact. No drainage. Capillary refill brisk. Patient confused. On supplemental oxygen. Objective Data Vital Signs Vital Signs: Vital Signs - 24 hr 05/26/21 18:00 05/26/21 20:00 05/26/21 20:30 Temperature 36.4 C L Pulse Rate 62 63 60 Respiratory Rate 25 H 17 Blood Pressure 153/79 H Pulse Oximetry 94 05/26/21 20:33 05/26/21 20:39 05/26/21 21:23 Temperature Pulse Rate 61 64 Respiratory Rate 18 Blood Pressure Pulse Oximetry 90 05/26/21 22:00 05/27/21 00:00 05/27/21 02:00 Temperature 36.4 C L Pulse Rate 59 L 54 L 62 Respiratory Rate 18 Blood Pressure 163/73 H Pulse Oximetry 84 L 05/27/21 03:01 05/27/21 03:09 05/27/21 04:00 Temperature 36.3 C L Pulse Rate 59 L 60 61 Respiratory Rate 20 20 18 Blood Pressure 166/76 H Pulse Oximetry 90 05/27/21 06:00 05/27/21 08:00 05/27/21 08:41 Temperature 36.3 C L Pulse Rate 58 L 60 Respiratory Rate 18 Blood Pressure 132/59 L Pulse Oximetry 93 94 05/27/21 08:43 05/27/21 08:55 05/27/21 10:00 Temperature Pulse Rate 56 L 56 L 60 Respiratory Rate 18 21 H Blood Pressure Pulse Oximetry 05/27/21 10:58 05/27/21 12:00 05/27/21 14:00 Temperature 36.4 C L Pulse Rate 57 L 57 L 60 Respiratory Rate 18 Blood Pressure 162/69 H Pulse Oximetry 93 05/27/21 15:31 05/27/21 15:32 05/27/21 15:49 Temperature Pulse Rate 59 L 62 Respiratory Rate 24 H 20 Blood Pressure Pulse Oximetry 92 91 05/27/21 16:00 Temperature Pulse Rate 64 Respiratory Rate Blood Pressure Pulse Oximetry Intake/Output Intake/Output: Intake & Output 05/24/21 05/25/21 05/26/21 05/27/21 23:59 23:59 23:59 23:59 Intake Total 1340 500 580 590 Output Total 350 1400 1550 1000 Balance 990 -900 -970 -410 Meds/Results Medications: Active Medications Generic Name Dose Route Start Last Admin Trade Name Freq PRN Reason Stop Dose Admin Acetaminophen 650 mg 05/22/21 21:23 05/23/21 17:51 Acetaminophen 325 Mg Tablet PO 650 mg Q4H PRN Administration Fever Hydrocodone Bitart/Acetaminophen 1 tab 05/22/21 14:35 05/26/21 01:01 Hydrocodone/Acetaminophen (*Crx) 5-325 Mg Tablet PO 1 tab Q4H PRN Administration Pain Rated 4-6 Albuterol 2.5 mg 05/26/21 02:00 05/27/21 15:35 Albuterol Sulfate Neb 2.5 Mg/0.5 Ml Inh INHALATION 2.5 mg Q6HRT TERRELL Administration Aspirin 81 mg 05/27/21 09:00 05/27/21 08:22 Aspirin 81 Mg Enteric Tablet PO 81 mg QAM TERRELL Administration Baricitinib 2 mg 05/27/21 09:00 05/27/21 11:12 Baricitinib 2 Mg Tablet PO 2 mg DAILY TERRELL Administration Carbidopa/Levodopa 2 tablet 05/23/21 21:05 05/27/21 12:16 Carbidopa/Levodopa 25/100 Mg Tablet PO 2 tablet TID TERRELL Administration Dexamethasone Sodium Phosphate 6 mg 05/25/21 22:15 05/27/21 08:22 Dexamethasone Sod Phos Inj 10 Mg/Ml 1 Ml Vial IV PUSH 06/03/21 09:01 6 mg DAILY TERRELL Administration Dextrose 12.5 gm 05/22/21 16:26 Dextrose 50% 25 Gm/50 Ml Syringe I
[2021-05-27] MEDS: LORATADINE 10 MG TABLET PO (17:10)
[2021-05-27] MEDS: ROSUVASTATIN 10 MG TABLET PO (17:10)
[2021-05-27 18:08] LABS: Glucose Point of Care 359 mg/dl (65-105)
[2021-05-27] MEDS: REMDESIVIR 100 MG/NS 250 ML 100 MG/250 ML BAG 250 MG IVPB (22:00)
[2021-05-27] MEDS: METOPROLOL TARTRATE 25 MG TABLET PO (22:00)
[2021-05-28] VITALS (35 sets, daily range): BP systolic 113–176; BP diastolic 58–92; PULSE 47–67; RESP 10–30; TEMP 35.9–36.6; O2SAT 85–99
[2021-05-28] MEDS: HYDROmorphone HCL INJ (*CRX) 1 MG/ML SYR 0.5 MG IV PUSH (05:18)
[2021-05-28 05:35] LABS: Basophils Percent Auto 0.2 % (0.2-1.2); Hematocrit 33.9 % (42.0-52.0); Hemoglobin 10.9 g/dL (14.0-18.0); Immature Granulocyte Absolute 0.15 K/mm3 (0.00-0.031); Immature Granulocyte Percent A 1.2 % (0-0.5); Lymphocytes Absolute Auto 0.79 K/mm3 (0.9-3.2); Lymphocytes Percent Auto 6.5 % (18.3-44.2); Mean Corpuscular HGB Conc 32.2 g/dl (32-36); Mean Corpuscular Hemoglobin 26.7 pg (26-34); Mean Corpuscular Volume 83.1 fl (80-100); Mean Platelet Volume 10.7 fl (7.4-10.4); Monocytes Absolute Auto 0.4 K/mm3 (0.1-0.6); Monocytes Percent Auto 3.2 % (2.6-8.5); Neutrophils Absolute Auto 10.8 K/mm3 (1.3-6.7); Neutrophils Percent Auto 88.9 % (45.5-73.1); Platelet Count Result 239 k/mm3 (150-375); Red Blood Count 4.08 M/mm3 (4.6-6.20); Red Cell Distribution Width 14.1 % (11.5-14.5); White Blood Count 12.1 K/mm3 (4.5-10.0)
[2021-05-28 05:56] LABS: INR 1.1; Prothrombin Time 14.1 Seconds (11.1-14.7)
[2021-05-28 06:03] LABS: Alanine Aminotransferase 11 U/L (4-50); Albumin Level 3.1 g/dL (3.5-5.1); Alkaline Phosphatase 93 U/L (38-126); Anion Gap 8 mmol/L (8-16); Aspartate Amino Transferase 36 U/L (17-59); Bilirubin,Total 0.3 mg/dL (0.2-1.3); Blood Urea Nitrogen 72 mg/dL (9-20); Calcium 9.6 mg/dL (8.4-10.2); Carbon Dioxide 26 mmol/L (22-30); Chloride 99 mmol/L (98-107); Estimated CRCL calculation 40 ml/min; Estimated Glomerular Filt Rate 39; Glucose 342 mg/dL (65-110); Magnesium 2.2 mg/dL (1.6-2.3); Phosphorus 3.2 mg/dL (2.5-4.5); Potassium 4.3 mmol/L (3.4-5.0); Sodium 133 mmol/L (137-145)
[2021-05-28] MEDS: dexmedeTOMIDine 400 MCG/100 ML 400 MCG/100 ML BAG 13.55 MCG IV CONT (06:20)
[2021-05-28 08:00] LABS: Alveolar/Arterial O2 Gradient 591.4 mmHg; Base Excess ABG -1.9 mEq/l (+/-2.0); Device HIGH FLOW NASAL CANN; Fractional Inspired Oxygen 100 %; Modified Allen's Test Unable to perform; Oxygen Content ABG 13.9 %vol (16.0-22.0); Oxygen Saturation ABG 96.9 % (95.0-100.0); Oxyhemoglobin 94.4 % THb (90.0-100.0); PCO2 ABG 34.4 mmHg (35.0-45.0); PO2 ABG 87.2 mmHg (80.0-100.0); PO2 FiO2 Ratio Arterial Blood 0.87 %; Site Drawn RIGHT RADIAL; Total Hemoglobin 10.4 g/dL (12.0-18.0); pH ABG 7.424 (7.350-7.450)
[2021-05-28] MEDS: IPRATROPIUM BR 0.02% INH SOLN 0.5 MG/2.5 ML VIAL INHALATION ×3 (08:16→20:14)
[2021-05-28] MEDS: ALBUTEROL SULFATE NEB 2.5 MG/0.5 ML INH INHALATION ×3 (08:16→20:14)
[2021-05-28] MEDS: INSULIN GLARGINE (*BKC) 100 UNITS/ML 12 UNITS SUB-Q (08:38)
[2021-05-28] MEDS: INSULIN ASPART (*BKC) 100 UNITS/ML SUB-Q ×3 (08:38→18:10)
[2021-05-28] MEDS: HEPARIN SODIUM 5,000 UNITS/ML VIAL 5000 UNITS SUB-Q ×2 (08:39→20:50)
[2021-05-28 08:48] LABS: Glucose Point of Care 337 mg/dl (65-105)
--- NOTE | 2021-05-28 09:15 | WPDCNINT ---
Assessment and Plan Assessment and plan (1) Encephalopathy: Code(s): G93.40 - Encephalopathy, unspecified Status: Acute Assessment and Plan: Encephalopathy with agitation and confusion could be multifactorial, lack of sleep, Dilaudid, dementia, hypoxia -ABGs this morning were adequate -according the nurses patient has not slept in 3 days, no sleep aids with tried -will add small dose of melatonin -continue Precedex for now and wean to off as tolerated (2) Respiratory failure with hypoxia: Code(s): J96.91 - Respiratory failure, unspecified with hypoxia Status: Acute Assessment and Plan: Hypoxic respiratory failure likely related to COVID pneumonia -patient has been vaccinated with Moderna vaccine in November and December of 2020 -chest x-ray and ABGs reviewed -patient remains on 15 L high-flow oxygen via nasal cannula at 15 L non-rebreather adequate O2 sats, will start weaning FiO2 as tolerated -patient also has a history of COPD, on bronchodilator (3) COVID-19: Code(s): U07.1 - COVID-19 Status: Acute Assessment and Plan: SARS-CoV-2 PCR was positive on 05/23/2021, SARS-CoV-2 antigen was positive on 05/22/2021 -oxygen requirements increased post surgery -chest x-ray and ABGs reviewed -continue dexamethasone which was initiated on 05/25/2021 -continue Baricitinib which was initiated on 05/27/2020 -continue Remdesivir which was initiated on 05/26/2021 (4) Atrial fibrillation with RVR: Code(s): I48.91 - Unspecified atrial fibrillation Status: Acute Assessment and Plan: Patient on metoprolol, currently sinus bradycardic, will continue to monitor (5) Closed bimalleolar fracture of right ankle: Code(s): S82.841A - Displaced bimalleolar fracture of right lower leg, initial encounter for closed fracture Status: Acute Assessment and Plan: Displaced bimalleolar fracture of the right ankle, status post ORIF of the bimalleolar fracture of the right ankle on 05/25/2021 -right lower extremity in dressing and Stephen wrap clean dry and intact -ortho is following the patient (6) Type 2 diabetes mellitus with hyperglycemia, with long-term current use of insulin: Code(s): E11.65 - Type 2 diabetes mellitus with hyperglycemia; Z79.4 - intermediate (current) use of insulin Status: Acute Assessment and Plan: Patient with history of diabetes and hyperglycemia -has been hyperglycemic for the last 3 days with blood sugars in the 300s -patient currently on low-dose sliding scale which was discontinued -patient has been placed on high-dose sliding scale insulin Accu-Cheks -Lantus has been added -hyperglycemia related to possible steroids (7) Essential hypertension: Code(s): I10 - Essential (primary) hypertension Status: Chronic Assessment and Plan: Patient also hypertensive, will continue metoprolol, furosemide -will add amlodipine for better blood pressure control (8) Chronic kidney disease (CKD) stage G3b/A3, moderately decreased glomerular filtration rate (GFR) between 30-44 mL/min/1.73 square meter and albuminuria creatinine ratio greater than 300 mg/g: Code(s): N18.3 - Chronic kidney disease, stage 3 (moderate) Status: Acute Assessment and Plan: Chronic kidney disease stage III -creatinine has been stable -urine output has been -continue to monitor renal function, electrolytes and urine (9) DVT prophylaxis: Code(s): Z29.9 - Encounter for prophylactic measures, unspecified Status: Acute Assessment and Plan: Continue heparin SQ Additional Plan Code status: Do not resuscitate Critical care time spent: 42 minutes This dictation may have been done utilizing a voice recognition system. Attempts have been made to correct errors. However, there may be uncorrected grammatical, spelling, and recognition errors present. Due to a high probability of clinically significant, life threatening deteriorati
[2021-05-28] MEDS: ASPIRIN 81 MG ENTERIC TABLET PO (12:43)
[2021-05-28] MEDS: GABAPENTIN 400 MG CAPSULE 800 MG PO ×2 (12:44→18:07)
[2021-05-28] MEDS: amLODIPine BESYLATE 5 MG TABLET PO (12:44)
[2021-05-28] MEDS: OPTI-GEN TAB 1 TABLET PO (12:44)
[2021-05-28] MEDS: CARBIDOPA/LEVODOPA 25/100 MG TABLET 2 TABLET PO ×2 (12:44→18:06)
[2021-05-28] MEDS: PANTOPRAZOLE 40 MG TABLET PO (12:44)
[2021-05-28] MEDS: DOCUSATE SODIUM 100 MG CAPSULE PO ×2 (12:44→18:07)
[2021-05-28] MEDS: BARICITINIB 2 MG TABLET PO (12:44)
[2021-05-28] MEDS: FEBUXOSTAT 40 MG TABLET PO (12:44)
[2021-05-28 12:56] LABS: Glucose Point of Care 330 mg/dl (65-105)
--- NOTE | 2021-05-28 13:15 | PCPTNOTE ---
Attempted to see pt for PT session. RN requests that therapy hold today due to respiratory status. Will check back tomorrow and continue PT POC as appropriate.
[2021-05-28] MEDS: dexmedeTOMIDine 400 MCG/100 ML 400 MCG/100 ML BAG 5.42 MCG IV CONT (15:22)
[2021-05-28] MEDS: LORATADINE 10 MG TABLET PO (18:07)
[2021-05-28] MEDS: ROSUVASTATIN 10 MG TABLET PO (18:07)
--- NOTE | 2021-05-28 18:08 | P.PNIM_ITS ---
Progress Note: A&P Assessment and Plan (1) Closed bimalleolar fracture of right ankle: Code(s): S82.841A - Displaced bimalleolar fracture of right lower leg, initial encounter for closed fracture Status: Acute Assessment and Plan: * Per ankle xray * ortho has been consulted. * partial cast to the right ankle. * Multiple falls reported will likely need rehab * frequent falls possibly from his Parkinson's or peripheral neuropathy from his diabetes. * PT and OT * pain management. * high school coordinator for possible placement. * Ortho to manage post care * antiemetic for nausea * Surgical services rescheduled for 05/25/[address] Sandoval * Echo shows EF of 65-70% (2) COVID-19: Code(s): U07.1 - COVID-19 Status: Acute Assessment and Plan: * Known exposure from * COVID swab positive in ed * Repeat PCR positive * remains symptom free * Oxygen has been turned down to RA and saturations have been 92-93 on room air with ear sensor * ABG ordered to determine accuracy, since patient does not look short of breath or have any increase work of breathing * Labs are pending * HOB 30 degrees * Chest xray: emphysema in the right upper and lower lobes * no need to start covid medications at this time * Vaccinated with Maderna October/November (3) COPD (chronic obstructive pulmonary disease): Code(s): J44.9 - Chronic obstructive pulmonary disease, unspecified Status: Chronic Assessment and Plan: * No acute exacerbation * Could be turning into an exacerbation * Increase sputum production * Albuterol and Spiriva ordered * Chest xray saw emphysema * Outpatient follow up will need to be done post discharge * Sputum culture (4) Parkinsons: Code(s): G20 - Parkinson's disease Status: Chronic Assessment and Plan: * carbidopa levodopa 50mg PO TID with meal (5) Peripheral neuropathy: Code(s): G62.9 - Polyneuropathy, unspecified Status: Acute Assessment and Plan: * gabapentin 800mg BID PO * Education (6) Frequent falls: Code(s): R29.6 - Repeated falls Status: Acute Assessment and Plan: * PT OT * Fall precautions (7) Type 2 diabetes mellitus with hyperglycemia, with long-term current use of insulin: Code(s): E11.65 - Type 2 diabetes mellitus with hyperglycemia; Z79.4 - emt intermediate (current) use of insulin Status: Acute Assessment and Plan: * Glucose 212 * Accu-Cheks AC and HS * A1c 7.3 * sliding scale insulin. * Hypoglycemia protocol * Adjust medications as needed (8) Essential hypertension: Code(s): I10 - Essential (primary) hypertension Status: Chronic Assessment and Plan: * BP 154/67 * Continue home metoprolol 25mg PO Daily, will increase to 50 PO daily * Continue HCTZ 25mg PO daily * Trend BP * Adjust medications as needed (9) Pure hypercholesterolemia, unspecified: Code(s): E78.00 - Pure hypercholesterolemia, unspecified Status: Acute Assessment and Plan: * Continue home Rosuvastatin 10mg PO daily * Lipid panel in the am * Adjust medications as needed (10) Chronic kidney disease (CKD) stage G3b/A3, moderately decreased glomerular filtration rate (GFR) between 30-44 mL/min/1.73 square meter and albuminuri
--- NOTE | 2021-05-28 18:08 | PM.IMPN ---
Progress Note: A&P Assessment and Plan (1) Closed bimalleolar fracture of right ankle: Code(s): S82.841A - Displaced bimalleolar fracture of right lower leg, initial encounter for closed fracture Status: Acute Assessment and Plan: Per ankle xray ortho has been consulted. partial cast to the right ankle. Multiple falls reported will likely need rehab frequent falls possibly from his Parkinson's or peripheral neuropathy from his diabetes. PT and OT pain management. drug abuse program coordinator for possible placement. Ortho to manage post care antiemetic for nausea Surgical services rescheduled for 05/25/[address] Sandoval Echo shows EF of 65-70% (2) COVID-19: Code(s): U07.1 - COVID-19 Status: Acute Assessment and Plan: Known exposure from COVID swab positive in ed Repeat PCR positive remains symptom free Oxygen has been turned down to RA and saturations have been 92-93 on room air with ear sensor ABG ordered to determine accuracy, since patient does not look short of breath or have any increase work of breathing Labs are pending HOB 30 degrees Chest xray: emphysema in the right upper and lower lobes no need to start covid medications at this time Vaccinated with Maderna October/November (3) COPD (chronic obstructive pulmonary disease): Code(s): J44.9 - Chronic obstructive pulmonary disease, unspecified Status: Chronic Assessment and Plan: No acute exacerbation Could be turning into an exacerbation Increase sputum production Albuterol and Spiriva ordered Chest xray saw emphysema Outpatient follow up will need to be done post discharge Sputum culture (4) Parkinsons: Code(s): G20 - Parkinson's disease Status: Chronic Assessment and Plan: carbidopa levodopa 50mg PO TID with meal (5) Peripheral neuropathy: Code(s): G62.9 - Polyneuropathy, unspecified Status: Acute Assessment and Plan: gabapentin 800mg BID PO Education (6) Frequent falls: Code(s): R29.6 - Repeated falls Status: Acute Assessment and Plan: PT OT Fall precautions (7) Type 2 diabetes mellitus with hyperglycemia, with long-term current use of insulin: Code(s): E11.65 - Type 2 diabetes mellitus with hyperglycemia; Z79.4 - assisted (current) use of insulin Status: Acute Assessment and Plan: Glucose 212 Accu-Cheks AC and HS A1c 7.3 sliding scale insulin. Hypoglycemia protocol Adjust medications as needed (8) Essential hypertension: Code(s): I10 - Essential (primary) hypertension Status: Chronic Assessment and Plan: BP 154/67 Continue home metoprolol 25mg PO Daily, will increase to 50 PO daily Continue HCTZ 25mg PO daily Trend BP Adjust medications as needed (9) Pure hypercholesterolemia, unspecified: Code(s): E78.00 - Pure hypercholesterolemia, unspecified Status: Acute Assessment and Plan: Continue home Rosuvastatin 10mg PO daily Lipid panel in the am Adjust medications as needed (10) Chronic kidney disease (CKD) stage G3b/A3, moderately decreased glomerular filtration rate (GFR) between 30-44 mL/min/1.73 square meter and albuminuria creatinine ratio greater than 300 mg/g: Code(s): N18.3 - Chronic kidney disease, stage 3 (moderate) Status: Acute Assessment and Plan: BUN/Cr Trend labs Avoid nephrotoxic medications patient appears to be at his baseline and it is stable. (11) Diabetic polyneuropathy associated with type 2 diabetes mellitus: Code(s): E11.42 - Type 2 diabetes mellitus with diabetic polyneuropathy Status: Chronic Assessment and Plan: gabapentin 800mg PO BID Additional Plan noted patient has been started on precedex Day 4 steroids, Day 3 Remdesivir, Day 2 Baricitini
[2021-05-28 18:19] LABS: Glucose Point of Care 397 mg/dl (65-105)
[2021-05-28] MEDS: MELATONIN 3 MG TABLET PO (20:50)
[2021-05-28] MEDS: REMDESIVIR 100 MG/NS 250 ML 100 MG/250 ML BAG 250 MG IVPB (22:25)
[2021-05-28 22:37] LABS: Glucose Point of Care 482 mg/dl (65-105)
[2021-05-29] VITALS (40 sets, daily range): BP systolic 139–166; BP diastolic 68–85; PULSE 45–60; RESP 17–29; TEMP 34.3–36.2; O2SAT 93–98
[2021-05-29] MEDS: INSULIN ASPART (*BKC) 100 UNITS/ML 12 UNITS SUB-Q (00:02)
[2021-05-29 02:04] LABS: Glucose Point of Care 420 mg/dl (65-105)
[2021-05-29] MEDS: ALBUTEROL SULFATE NEB 2.5 MG/0.5 ML INH INHALATION (02:26)
[2021-05-29] MEDS: IPRATROPIUM BR 0.02% INH SOLN 0.5 MG/2.5 ML VIAL INHALATION (02:26)
[2021-05-29] MEDS: INSULIN ASPART (*BKC) 100 UNITS/ML 18 UNITS SUB-Q (02:43)
[2021-05-29] MEDS: dexmedeTOMIDine 400 MCG/100 ML 400 MCG/100 ML BAG 10.84 MCG IV CONT (02:49)
[2021-05-29 04:34] LABS: Hematocrit 32.3 % (42.0-52.0); Hemoglobin 10.2 g/dL (14.0-18.0); Mean Corpuscular HGB Conc 31.6 g/dl (32-36); Mean Corpuscular Hemoglobin 26.8 pg (26-34); Mean Platelet Volume 10.9 fl (7.4-10.4); Platelet Count Result 222 k/mm3 (150-375); Red Cell Distribution Width 14.3 % (11.5-14.5); White Blood Count 7.3 K/mm3 (4.5-10.0)
[2021-05-29 04:43] LABS: INR 1.1; Prothrombin Time 13.7 Seconds (11.1-14.7)
[2021-05-29 04:56] LABS: Alanine Aminotransferase 12 U/L (4-50); Anion Gap 10 mmol/L (8-16); Blood Urea Nitrogen 80 mg/dL (9-20); Calcium 9.4 mg/dL (8.4-10.2); Carbon Dioxide 21 mmol/L (22-30); Chloride 100 mmol/L (98-107); Estimated CRCL calculation 42 ml/min; Estimated Glomerular Filt Rate 42; Glucose 415 mg/dL (65-110); Magnesium 2.2 mg/dL (1.6-2.3); Phosphorus 4.1 mg/dL (2.5-4.5); Potassium 4.5 mmol/L (3.4-5.0); Sodium 131 mmol/L (137-145)
[2021-05-29 04:57] LABS: Glucose Point of Care 328 mg/dl (65-105)
[2021-05-29 06:50] LABS: Glucose Point of Care 300 mg/dl (65-105)
--- NOTE | 2021-05-29 08:37 | PCOTNOTE ---
Attempted to see patient at this time for skilled OT session. Before attempt, spoke with RN. RN reports no improvement in respiratory/O2 sats this date and presents with increased confusion. Per RN, patient not appropriate to be seen this date. Will continue OT per POC accordingly.
[2021-05-29] MEDS: INSULIN ASPART (*BKC) 100 UNITS/ML SUB-Q ×2 (08:47→17:12)
[2021-05-29] MEDS: INSULIN GLARGINE (*BKC) 100 UNITS/ML 40 UNITS SUB-Q (08:47)
[2021-05-29] MEDS: BARICITINIB 2 MG TABLET PO (08:52)
[2021-05-29] MEDS: PANTOPRAZOLE 40 MG TABLET PO (08:53)
[2021-05-29] MEDS: FEBUXOSTAT 40 MG TABLET PO (08:53)
[2021-05-29] MEDS: CARBIDOPA/LEVODOPA 25/100 MG TABLET 2 TABLET PO ×3 (08:53→17:11)
[2021-05-29] MEDS: GABAPENTIN 400 MG CAPSULE 800 MG PO ×2 (08:53→17:11)
[2021-05-29] MEDS: HEPARIN SODIUM 5,000 UNITS/ML VIAL 5000 UNITS SUB-Q ×2 (08:54→19:38)
[2021-05-29] MEDS: OPTI-GEN TAB 1 TABLET PO (08:54)
[2021-05-29] MEDS: DOCUSATE SODIUM 100 MG CAPSULE PO ×2 (08:57→17:11)
[2021-05-29] MEDS: amLODIPine BESYLATE 5 MG TABLET PO (08:57)
[2021-05-29] MEDS: ASPIRIN 81 MG ENTERIC TABLET PO (08:58)
[2021-05-29 09:14] LABS: Glucose Point of Care 210 mg/dl (65-105)
--- NOTE | 2021-05-29 10:35 | WPDINTPN ---
Progress Note: A&P Assessment and Plan (1) Encephalopathy: Code(s): G93.40 - Encephalopathy, unspecified Status: Acute Assessment and Plan: Encephalopathy with delirium, agitation and confusion could be multifactorial, lack of sleep, Dilaudid, dementia, hypoxia -ABGs were adequate -continue melatonin at night -continue Precedex for now and wean to off as tolerated (2) Respiratory failure with hypoxia: Code(s): J96.91 - Respiratory failure, unspecified with hypoxia Status: Acute Assessment and Plan: Hypoxic respiratory failure likely related to COVID pneumonia -patient has been vaccinated with Moderna vaccine in November and December of 2020 -chest x-ray and ABGs reviewed Patient on CPAP of 12, on 100% FiO2, will wean FiO2 to maintain O2 sats greater than 92% -patient also has a history of COPD, on bronchodilator (3) COVID-19: Code(s): U07.1 - COVID-19 Status: Acute Assessment and Plan: SARS-CoV-2 PCR was positive on 05/23/2021, SARS-CoV-2 antigen was positive on 05/22/2021 -oxygen requirements increased post surgery -chest x-ray and ABGs reviewed -continue dexamethasone which was initiated on 05/25/2021 -continue Baricitinib which was initiated on 05/27/2020 -continue Remdesivir which was initiated on 05/26/2021 (4) Atrial fibrillation with RVR: Code(s): I48.91 - Unspecified atrial fibrillation Status: Acute Assessment and Plan: Holding metoprolol as patient is bradycardic, will continue to monitor (5) Closed bimalleolar fracture of right ankle: Code(s): S82.841A - Displaced bimalleolar fracture of right lower leg, initial encounter for closed fracture Status: Acute Assessment and Plan: Displaced bimalleolar fracture of the right ankle, status post ORIF of the bimalleolar fracture of the right ankle on 05/25/2021 -right lower extremity in dressing and Stephen wrap clean dry and intact -ortho is following the patient (6) Type 2 diabetes mellitus with hyperglycemia, with long-term current use of insulin: Code(s): E11.65 - Type 2 diabetes mellitus with hyperglycemia; Z79.4 - salvage determiner (current) use of insulin Status: Acute Assessment and Plan: Patient with history of diabetes and hyperglycemia -has been hyperglycemic for the last 3 days with blood sugars in the 300s -patient currently on low-dose sliding scale which was discontinued -patient has been placed on high-dose sliding scale insulin Accu-Cheks -Lantus has been increased -hyperglycemia related to possible steroids (7) Essential hypertension: Code(s): I10 - Essential (primary) hypertension Status: Chronic Assessment and Plan: Patient also hypertensive, will continue metoprolol, furosemide -continue amlodipine for better blood pressure control (8) Chronic kidney disease (CKD) stage G3b/A3, moderately decreased glomerular filtration rate (GFR) between 30-44 mL/min/1.73 square meter and albuminuria creatinine ratio greater than 300 mg/g: Code(s): N18.3 - Chronic kidney disease, stage 3 (moderate) Status: Acute Assessment and Plan: Chronic kidney disease stage III -creatinine has been stable -urine output has been -continue to monitor renal function, electrolytes and urine (9) DVT prophylaxis: Code(s): Z29.9 - Encounter for prophylactic measures, unspecified Status: Acute Assessment and Plan: Continue heparin SQ Additional Plan Code status: Do not resuscitate Critical care time spent: 33 minutes This dictation may have been done utilizing a voice recognition system. Attempts have been made to correct errors. However, there may be uncorrected grammatical, spelling, and recognition errors present. Due to a high probability of clinically significant, life threatening deterioration, the patient required my highest level of preparedness to intervene emergently and I personally spent this critical care time directly an
[2021-05-29] MEDS: ALBUTEROL SULFATE (*SP) AEROSOL 1 PUFF 2 PUFF INHALATION ×3 (11:03→21:00)
[2021-05-29] MEDS: dexmedeTOMIDine 400 MCG/100 ML 400 MCG/100 ML BAG 13.55 MCG IV CONT (13:41)
--- NOTE | 2021-05-29 15:10 | PCPTNOTE ---
Therapy spoke with RN this morning. RN reports no improvement in respiratory/O2 sats this date and presents with increased confusion. Per RN, patient not appropriate to be seen this date.
[2021-05-29 16:28] LABS: Glucose Point of Care 200 mg/dl (65-105)
[2021-05-29 16:28] LABS: Glucose Point of Care 287 mg/dl (65-105)
[2021-05-29] MEDS: ROSUVASTATIN 10 MG TABLET PO (17:12)
[2021-05-29] MEDS: LORATADINE 10 MG TABLET PO (17:13)
[2021-05-29] MEDS: MELATONIN 3 MG TABLET PO (19:38)
[2021-05-29] MEDS: dexmedeTOMIDine 400 MCG/100 ML 400 MCG/100 ML BAG 16.26 MCG IV CONT (20:58)
[2021-05-29] MEDS: REMDESIVIR 100 MG/NS 250 ML 100 MG/250 ML BAG 250 MG IVPB (21:01)
--- NOTE | 2021-05-29 23:15 | PC.NURSE ---
2315- Patient ripped off bipap mask. Patient disoriented screaming I don't want to do this anymore . Refusing to put the bipap back on. Patient started to get combative. 3 RN's at the bedside to calm patient. Family called to try and calm patient down. Patient still not cooperating. Family stated they wanted the sedative increased so he would wear his oxygen . 2320- Dr. Suarez called and notified ok to increase precedex drip to 1.5 and to put patient in restraints.
[2021-05-30] VITALS (31 sets, daily range): BP systolic 112–184; BP diastolic 68–99; PULSE 44–64; RESP 17–31; TEMP 35.8–36.8; O2SAT 86–97
[2021-05-30] MEDS: dexmedeTOMIDine 400 MCG/100 ML 400 MCG/100 ML BAG 40.65 MCG IV CONT ×3 (00:33→06:02)
[2021-05-30 01:21] LABS: Glucose Point of Care 335 mg/dl (65-105)
[2021-05-30] MEDS: ALBUTEROL SULFATE (*SP) AEROSOL 1 PUFF 2 PUFF INHALATION ×4 (02:20→20:30)
[2021-05-30 04:36] LABS: Hematocrit 36.3 % (42.0-52.0); Hemoglobin 11.6 g/dL (14.0-18.0); Mean Corpuscular Hemoglobin 26.7 pg (26-34); Mean Corpuscular Volume 83.6 fl (80-100); Mean Platelet Volume 10.4 fl (7.4-10.4); Platelet Count Result 232 k/mm3 (150-375); Red Blood Count 4.34 M/mm3 (4.6-6.20); Red Cell Distribution Width 13.9 % (11.5-14.5); White Blood Count 8.4 K/mm3 (4.5-10.0)
[2021-05-30 04:52] LABS: Anion Gap 9 mmol/L (8-16); Blood Urea Nitrogen 79 mg/dL (9-20); Carbon Dioxide 21 mmol/L (22-30); Chloride 102 mmol/L (98-107); Estimated CRCL calculation 48 ml/min; Estimated Glomerular Filt Rate 49; Glucose 319 mg/dL (65-110); Magnesium 2.3 mg/dL (1.6-2.3); Phosphorus 4.3 mg/dL (2.5-4.5); Potassium 4.9 mmol/L (3.4-5.0); Sodium 132 mmol/L (137-145)
--- NOTE | 2021-05-30 05:35 | PCRCNOTE ---
I was not able to obtain pt's 0411 abg due to pt being highly agitated and moving amongst his bed.
[2021-05-30] MEDS: INSULIN ASPART (*BKC) 100 UNITS/ML SUB-Q ×2 (08:16→13:24)
[2021-05-30] MEDS: INSULIN DETEMIR 100 UNITS/ML 27 UNITS SUB-Q ×2 (08:18→20:22)
[2021-05-30] MEDS: HEPARIN SODIUM 5,000 UNITS/ML VIAL 5000 UNITS SUB-Q ×2 (08:18→20:25)
[2021-05-30] MEDS: FEBUXOSTAT 40 MG TABLET PO (08:28)
[2021-05-30] MEDS: OPTI-GEN TAB 1 TABLET PO (08:28)
[2021-05-30] MEDS: BARICITINIB 2 MG TABLET PO (08:28)
[2021-05-30] MEDS: amLODIPine BESYLATE 5 MG TABLET PO (08:28)
--- NOTE | 2021-05-30 08:28 | PCOTNOTE ---
Attempted to see patient at this time for skilled OT session. Therapy spoke with RN. Per RN, patient is to be on hold from therapies and said would check to make sure order went through for hold. Stated patient is not improving and therapy not appropriate. Will continue with POC accordingly.
[2021-05-30] MEDS: CARBIDOPA/LEVODOPA 25/100 MG TABLET 2 TABLET PO ×2 (08:29→17:06)
[2021-05-30] MEDS: DOCUSATE SODIUM 100 MG CAPSULE PO ×2 (08:29→17:06)
[2021-05-30] MEDS: ASPIRIN 81 MG ENTERIC TABLET PO (08:29)
[2021-05-30] MEDS: GABAPENTIN 400 MG CAPSULE 800 MG PO ×2 (08:29→17:06)
[2021-05-30] MEDS: PANTOPRAZOLE 40 MG TABLET PO (08:30)
[2021-05-30] MEDS: dexmedeTOMIDine 400 MCG/100 ML 400 MCG/100 ML BAG 27.1 MCG IV CONT ×2 (08:52→17:16)
[2021-05-30 09:32] LABS: Glucose Point of Care 326 mg/dl (65-105)
--- NOTE | 2021-05-30 09:35 | PCPTNOTE ---
Attempted to see patient at this time for skilled PT session. Spoke with RN. Per RN, patient is to be on hold from therapies and said he would check to make sure order went through for hold. Stated patient is not improving and therapy not appropriate.
--- NOTE | 2021-05-30 09:49 | WPDINTPN ---
Progress Note: A&P Assessment and Plan (1) Encephalopathy: Code(s): G93.40 - Encephalopathy, unspecified Status: Acute Assessment and Plan: Encephalopathy with delirium, agitation and confusion could be multifactorial, lack of sleep, Dilaudid, dementia, hypoxia -worsening encephalopathy, will check ABGs -continue Precedex for now, patient may require small dose of Ativan -family has been updated (2) Respiratory failure with hypoxia: Code(s): J96.91 - Respiratory failure, unspecified with hypoxia Status: Acute Assessment and Plan: Hypoxic respiratory failure likely related to COVID pneumonia -patient has been vaccinated with Moderna vaccine in November and December of 2020 -chest x-ray reviewed -patient currently high-flow therapy with 93% FiO2 and 50 L flow rate. On 100% non-rebreather -patient also has a history of COPD, on bronchodilator (3) COVID-19: Code(s): U07.1 - COVID-19 Status: Acute Assessment and Plan: SARS-CoV-2 PCR was positive on 05/23/2021, SARS-CoV-2 antigen was positive on 05/22/2021 -oxygen requirements increased post surgery -chest x-ray and ABGs reviewed -continue dexamethasone which was initiated on 05/25/2021 -continue Baricitinib which was initiated on 05/27/2020 -continue Remdesivir which was initiated on 05/26/2021, continue Remdesivir for another 5 days (4) Atrial fibrillation with RVR: Code(s): I48.91 - Unspecified atrial fibrillation Status: Acute Assessment and Plan: Holding metoprolol as patient is bradycardic, will continue to monitor (5) Closed bimalleolar fracture of right ankle: Code(s): S82.841A - Displaced bimalleolar fracture of right lower leg, initial encounter for closed fracture Status: Acute Assessment and Plan: Displaced bimalleolar fracture of the right ankle, status post ORIF of the bimalleolar fracture of the right ankle on 05/25/2021 -right lower extremity in dressing and Stephen wrap clean dry and intact -ortho is following the patient (6) Type 2 diabetes mellitus with hyperglycemia, with long-term current use of insulin: Code(s): E11.65 - Type 2 diabetes mellitus with hyperglycemia; Z79.4 - long term acute care registered nurse (current) use of insulin Status: Acute Assessment and Plan: Patient with history of diabetes and hyperglycemia -has been hyperglycemic for the last 3 days with blood sugars in the 300s -patient currently on low-dose sliding scale which was discontinued -patient has been placed on high-dose sliding scale insulin Accu-Cheks - Lantus switched to Levemir q.12 hours -hyperglycemia related to possible steroids (7) Essential hypertension: Code(s): I10 - Essential (primary) hypertension Status: Chronic Assessment and Plan: Patient also hypertensive, continue hydralazine IV p.r.n. (8) Chronic kidney disease (CKD) stage G3b/A3, moderately decreased glomerular filtration rate (GFR) between 30-44 mL/min/1.73 square meter and albuminuria creatinine ratio greater than 300 mg/g: Code(s): N18.3 - Chronic kidney disease, stage 3 (moderate) Status: Acute Assessment and Plan: Chronic kidney disease stage III -creatinine has been stable -urine output has been -continue to monitor renal function, electrolytes and urine (9) DVT prophylaxis: Code(s): Z29.9 - Encounter for prophylactic measures, unspecified Status: Acute Assessment and Plan: Continue heparin SQ Additional Plan Code status: Do not resuscitate Critical care time spent: 32minutes 05/29: Discuss with family and updated with patient's condition plan of care. I explained to them regarding patient being on Precedex, which is not decrease his respiratory drive. The goal is not to lately sedated him as to allow him to breathe on his own. He is a DNR/DNI so if we sedated him too much she will not be able to breathe on his own. The 2 daughters and the did comprehend this. This
[2021-05-30 10:04] LABS: Alanine Aminotransferase 10 U/L (4-50)
[2021-05-30 10:05] LABS: INR 1.1; Prothrombin Time 13.8 Seconds (11.1-14.7)
[2021-05-30] MEDS: dexmedeTOMIDine 400 MCG/100 ML 400 MCG/100 ML BAG 21.68 MCG IV CONT (12:35)
[2021-05-30] MEDS: LORazepam INJ (*CRX) 2 MG/ML VIAL 1 MG IV PUSH ×2 (12:36→20:26)
[2021-05-30 13:27] LABS: Glucose Point of Care 247 mg/dl (65-105)
--- NOTE | 2021-05-30 15:18 | PM.IMPN ---
Progress Note: A&P Assessment and Plan (1) Closed bimalleolar fracture of right ankle: Code(s): S82.841A - Displaced bimalleolar fracture of right lower leg, initial encounter for closed fracture Status: Acute (2) COVID-19: Code(s): U07.1 - COVID-19 Status: Acute Assessment and Plan: (3) COPD (chronic obstructive pulmonary disease): Code(s): J44.9 - Chronic obstructive pulmonary disease, unspecified Status: Chronic (4) Parkinsons: Code(s): G20 - Parkinson's disease Status: Chronic (5) Peripheral neuropathy: Code(s): G62.9 - Polyneuropathy, unspecified Status: Acute (6) Frequent falls: Code(s): R29.6 - Repeated falls Status: Acute (7) Type 2 diabetes mellitus with hyperglycemia, with long-term current use of insulin: Code(s): E11.65 - Type 2 diabetes mellitus with hyperglycemia; Z79.4 - production laborer (current) use of insulin Status: Acute (8) Essential hypertension: Code(s): I10 - Essential (primary) hypertension Status: Chronic (9) Pure hypercholesterolemia, unspecified: Code(s): E78.00 - Pure hypercholesterolemia, unspecified Status: Acute (10) Chronic kidney disease (CKD) stage G3b/A3, moderately decreased glomerular filtration rate (GFR) between 30-44 mL/min/1.73 square meter and albuminuria creatinine ratio greater than 300 mg/g: Code(s): N18.3 - Chronic kidney disease, stage 3 (moderate) Status: Acute (11) Diabetic polyneuropathy associated with type 2 diabetes mellitus: Code(s): E11.42 - Type 2 diabetes mellitus with diabetic polyneuropathy Status: Chronic Additional Plan Encephalopathy/Delirium: noted patient has been started on precedex - intermittently becomes unruly, maybe some kind of sundowning? COVID: Day 6 Dexamethasone 6mg, Day 5 Remdesivir 100mg, noted regimen extended for another 5 days, Day 4 Baricitinib 2mg S/p Bilalleolar ORIF, rt: POD5, PT/OT Chronic Medical conditions: Parkinson's, continue Sinemet. CKD 3B. DM2 mngmt titrated by icu team. Subjective Date/time seen: 05/30/21 15:18 no extensive interview possible Review of Systems Review of Systems: ROS unobtainable: Yes unobtainable due to medical condition Exam Const: General: no acute distress Neck: Neck: no JVD Cardio: Rate: regular rate Rhythm: regular rhythm Objective Data Vital Signs Vital Signs: Vital Signs - 24 hr 05/29/21 16:00 05/29/21 17:15 05/29/21 18:00 Temperature 96.5 F L Pulse Rate 56 L 56 L 54 L Respiratory Rate 23 H 23 H 18 Blood Pressure 141/85 H 153/81 H Pulse Oximetry 95 95 96 05/29/21 19:33 05/29/21 19:37 05/29/21 19:38 Temperature 96 F L Pulse Rate 56 L 54 L 58 L Respiratory Rate 24 H 23 H Blood Pressure 139/68 Pulse Oximetry 93 05/29/21 20:00 05/29/21 21:01 05/29/21 22:00 Temperature 96.1 F L Pulse Rate 53 L 47 L 47 L Respiratory Rate 24 H 20 Blood Pressure 142/70 H Pulse Oximetry 96 97 97 05/29/21 23:51 05/30/21 00:00 05/30/21 02:00 Temperature 96.4 F L 97.6 F Pulse Rate 60 60 58 L Respiratory Rate 19 18 22 H Blood Pressure 164/86 H 184/81 H Pulse Oximetry 98 97 91 05/30/21 03:50 05/30/21 04:00 05/30/21 06:00 Temperature 98.1 F 98.2 F Pulse Rate 58 L 54 L 52 L Respiratory Rate 24 H 21 H 20 Blood Pressure 175/80 H 144/74 H Pulse Oximetry 94 95 89 L 05/30/21 08:00 05/30/21 08:22 05/30/21 08:30 Temperature 98.1 F Pulse Rate 56 L 56 L 56 L Respiratory Rate 22 H 22 H 22 H Blood Pressure 141/73 H Pulse Oximetry 91 91 05/30/21 08:52 05/30/21 10:00 05/30/21 12:00 Temperature 97.6 F Pulse Rate 56 L 55 L 62 Respiratory Rate 22 H 18 20 Blood Pressure 162/97 H 164/79 H Pulse Oximetry 97 93 05/30/21 12:34 05/30/21 12:35 05/30/21 13:49 Temperature Pulse Rate 55 L 55 L 59 L Respiratory Rate 18 18 20 Blood Pressure Pulse Oximetry 92 05/30/21 14:00 05/30/21 14:31 Temperature
[2021-05-30] MEDS: LORATADINE 10 MG TABLET PO (17:06)
[2021-05-30] MEDS: ROSUVASTATIN 10 MG TABLET PO (17:06)
[2021-05-30 17:22] LABS: Glucose Point of Care 184 mg/dl (65-105)
[2021-05-30] MEDS: METOPROLOL TARTRATE 25 MG TABLET PO (20:26)
[2021-05-30] MEDS: MELATONIN 3 MG TABLET PO (20:26)
[2021-05-30] MEDS: dexmedeTOMIDine 400 MCG/100 ML 400 MCG/100 ML BAG 32.52 MCG IV CONT (20:40)
[2021-05-30 20:46] LABS: Glucose Point of Care 167 mg/dl (65-105)
[2021-05-30] MEDS: REMDESIVIR 100 MG/NS 250 ML 100 MG/250 ML BAG 250 MG IVPB (21:43)
[2021-05-30 22:41] LABS: Alveolar/Arterial O2 Gradient 592.3 mmHg; Base Excess ABG -2.8 mEq/l (+/-2.0); Carboxyhemoglobin 0.3 % THb (0-2.0); Fractional Inspired Oxygen 100 %; HCO3 ABG 22.5 mEq/l (22.0-26.0); Methemoglobin ABG 0.3 %THb (0-1.5); Oxygen Content ABG 14.9 %vol (16.0-22.0); Oxygen Saturation ABG 95.3 % (95.0-100.0); Oxyhemoglobin 93.1 % THb (90.0-100.0); PCO2 ABG 41.1 mmHg (35.0-45.0); PO2 ABG 79.6 mmHg (80.0-100.0); Reduced Hemoglobin 6.3 %THb (0-5.0); Total Hemoglobin 11.3 g/dL (12.0-18.0); pH ABG 7.356 (7.350-7.450)
[2021-05-30 22:42] LABS: CPAP 14 cmH2O; Device CPAP; Modified Allen's Test Pass; Site Drawn LEFT RADIAL
[2021-05-31] VITALS (40 sets, daily range): BP systolic 103–158; BP diastolic 43–98; PULSE 39–676; RESP 17–41; TEMP 35.6–38.4; O2SAT 77–100; BMI 31.6
[2021-05-31] MEDS: dexmedeTOMIDine 400 MCG/100 ML 400 MCG/100 ML BAG 24.39 MCG IV CONT (00:25)
[2021-05-31] MEDS: HYDROmorphone HCL INJ (*CRX) 1 MG/ML SYR 0.5 MG IV PUSH (04:30)
[2021-05-31 04:45] LABS: Basophils Percent Auto 0.2 % (0.2-1.2); Eosinophils Percent Auto 0.2 % (0-4.4); Hematocrit 34.6 % (42.0-52.0); Hemoglobin 11.1 g/dL (14.0-18.0); Immature Granulocyte Absolute 0.19 K/mm3 (0.00-0.031); Immature Granulocyte Percent A 1.5 % (0-0.5); Lymphocytes Absolute Auto 0.64 K/mm3 (0.9-3.2); Lymphocytes Percent Auto 4.9 % (18.3-44.2); Mean Corpuscular HGB Conc 32.1 g/dl (32-36); Mean Corpuscular Volume 84.2 fl (80-100); Mean Platelet Volume 11.1 fl (7.4-10.4); Monocytes Absolute Auto 0.5 K/mm3 (0.1-0.6); Monocytes Percent Auto 4.2 % (2.6-8.5); Neutrophils Absolute Auto 11.6 K/mm3 (1.3-6.7); Platelet Count Result 284 k/mm3 (150-375); Red Blood Count 4.11 M/mm3 (4.6-6.20); Red Cell Distribution Width 14.3 % (11.5-14.5)
[2021-05-31 04:57] LABS: Prothrombin Time 12.8 Seconds (11.1-14.7)
[2021-05-31 05:01] LABS: Alanine Aminotransferase 7 U/L (4-50); Anion Gap 5 mmol/L (8-16); Aspartate Amino Transferase 37 U/L (17-59); Blood Urea Nitrogen 82 mg/dL (9-20); Calcium 10.2 mg/dL (8.4-10.2); Carbon Dioxide 26 mmol/L (22-30); Chloride 105 mmol/L (98-107); Estimated CRCL calculation 48 ml/min; Estimated Glomerular Filt Rate 49; Glucose 167 mg/dL (65-110); Magnesium 2.3 mg/dL (1.6-2.3); Phosphorus 4.6 mg/dL (2.5-4.5); Sodium 136 mmol/L (137-145)
[2021-05-31] MEDS: dexmedeTOMIDine 400 MCG/100 ML 400 MCG/100 ML BAG 18.97 MCG IV CONT (05:05)
[2021-05-31] MEDS: INSULIN DETEMIR 100 UNITS/ML 27 UNITS SUB-Q (08:29)
[2021-05-31] MEDS: HEPARIN SODIUM 5,000 UNITS/ML VIAL 5000 UNITS SUB-Q ×2 (08:29→20:38)
[2021-05-31 08:43] LABS: Glucose Point of Care 151 mg/dl (65-105)
--- NOTE | 2021-05-31 09:00 | WPDINTPN ---
Progress Note: A&P Assessment and Plan (1) Encephalopathy: Code(s): G93.40 - Encephalopathy, unspecified Status: Acute Assessment and Plan: Encephalopathy with delirium, agitation and confusion could be multifactorial due to hypoxia, lack of sleep, Dilaudid, dementia, infection -worsening encephalopathy, ABGs has been within normal limits -continue Precedex for now, patient may require small dose of Ativan -family has been updated -CT scan of the brain on 05/30/2021 did not show any acute intracranial abnormality -check ammonia level -patient may require EEG (2) Respiratory failure with hypoxia: Code(s): J96.91 - Respiratory failure, unspecified with hypoxia Status: Acute Assessment and Plan: Hypoxic respiratory failure likely related to COVID pneumonia -patient has been vaccinated with Moderna vaccine in November and December of 2020 -chest x-ray reviewed -patient currently on CPAP with inspiratory pressures of 14, % FiO2. Wean FiO2 to maintain O2 sats greater than 92% -patient also has a history of COPD, on bronchodilator (3) COVID-19: Code(s): U07.1 - COVID-19 Status: Acute Assessment and Plan: SARS-CoV-2 PCR was positive on 05/23/2021, SARS-CoV-2 antigen was positive on 05/22/2021 -oxygen requirements increased post surgery -chest x-ray and ABGs reviewed -continue dexamethasone which was initiated on 05/25/2021 -continue Baricitinib which was initiated on 05/27/2020 -will continue Remdesivir for a total of 10 day ( initiated on 05/26/2021) (4) Atrial fibrillation with RVR: Code(s): I48.91 - Unspecified atrial fibrillation Status: Acute Assessment and Plan: Holding metoprolol as patient is bradycardic, will continue to monitor (5) Closed bimalleolar fracture of right ankle: Code(s): S82.841A - Displaced bimalleolar fracture of right lower leg, initial encounter for closed fracture Status: Acute Assessment and Plan: Displaced bimalleolar fracture of the right ankle, status post ORIF of the bimalleolar fracture of the right ankle on 05/25/2021 -right lower extremity in dressing and Stephen wrap clean dry and intact -ortho is following the patient (6) Type 2 diabetes mellitus with hyperglycemia, with long-term current use of insulin: Code(s): E11.65 - Type 2 diabetes mellitus with hyperglycemia; Z79.4 - ad terminal makeup operator (current) use of insulin Status: Acute Assessment and Plan: Patient with history of diabetes and hyperglycemia -has been hyperglycemic for the last 3 days with blood sugars in the 300s -patient currently on low-dose sliding scale which was discontinued -patient has been placed on high-dose sliding scale insulin Accu-Cheks - Lantus switched to Levemir q.12 hours -hyperglycemia related to possible steroids (7) Essential hypertension: Code(s): I10 - Essential (primary) hypertension Status: Chronic Assessment and Plan: Patient also hypertensive, continue hydralazine IV p.r.n. (8) Chronic kidney disease (CKD) stage G3b/A3, moderately decreased glomerular filtration rate (GFR) between 30-44 mL/min/1.73 square meter and albuminuria creatinine ratio greater than 300 mg/g: Code(s): N18.3 - Chronic kidney disease, stage 3 (moderate) Status: Acute Assessment and Plan: Chronic kidney disease stage III -creatinine has been stable -urine output has been -continue to monitor renal function, electrolytes and urine (9) DVT prophylaxis: Code(s): Z29.9 - Encounter for prophylactic measures, unspecified Status: Acute Assessment and Plan: Continue heparin SQ Additional Plan Code status: Do not resuscitate Critical care time spent: 32 minutes 05/29: Discuss with family and updated with patient's condition plan of care. I explained to them regarding patient being on Precedex, which is not decrease his respiratory drive. The goal is not to lately sedated him as to allow him to alanna
[2021-05-31 09:53] LABS: Ammonia < 9 umol/L (9-30)
[2021-05-31] MEDS: dexmedeTOMIDine 400 MCG/100 ML 400 MCG/100 ML BAG 10.84 MCG IV CONT (12:23)
[2021-05-31 12:28] LABS: Glucose Point of Care 111 mg/dl (65-105)
[2021-05-31] MEDS: LORazepam INJ (*CRX) 2 MG/ML VIAL 0.5 MG IV PUSH ×2 (13:32→14:24)
[2021-05-31] MEDS: ALBUTEROL SULFATE (*SP) AEROSOL 1 PUFF 2 PUFF INHALATION (14:10)
--- NOTE | 2021-05-31 16:48 | PM.IMPN ---
Progress Note: A&P Assessment and Plan (1) Closed bimalleolar fracture of right ankle: Code(s): S82.841A - Displaced bimalleolar fracture of right lower leg, initial encounter for closed fracture Status: Acute (2) COVID-19: Code(s): U07.1 - COVID-19 Status: Acute Assessment and Plan: (3) COPD (chronic obstructive pulmonary disease): Code(s): J44.9 - Chronic obstructive pulmonary disease, unspecified Status: Chronic (4) Parkinsons: Code(s): G20 - Parkinson's disease Status: Chronic (5) Peripheral neuropathy: Code(s): G62.9 - Polyneuropathy, unspecified Status: Acute (6) Frequent falls: Code(s): R29.6 - Repeated falls Status: Acute (7) Type 2 diabetes mellitus with hyperglycemia, with long-term current use of insulin: Code(s): E11.65 - Type 2 diabetes mellitus with hyperglycemia; Z79.4 - joint terminal attack controller (current) use of insulin Status: Acute (8) Essential hypertension: Code(s): I10 - Essential (primary) hypertension Status: Chronic (9) Pure hypercholesterolemia, unspecified: Code(s): E78.00 - Pure hypercholesterolemia, unspecified Status: Acute (10) Chronic kidney disease (CKD) stage G3b/A3, moderately decreased glomerular filtration rate (GFR) between 30-44 mL/min/1.73 square meter and albuminuria creatinine ratio greater than 300 mg/g: Code(s): N18.3 - Chronic kidney disease, stage 3 (moderate) Status: Acute (11) Diabetic polyneuropathy associated with type 2 diabetes mellitus: Code(s): E11.42 - Type 2 diabetes mellitus with diabetic polyneuropathy Status: Chronic Additional Plan Encephalopathy/Delirium: noted patient has been started on precedex - intermittently becomes unruly, maybe some kind of sundowning? COVID: Day 7 Dexamethasone 6mg, Day 6 Remdesivir 100mg, Day 5 Baricitinib 2mg S/p Bilalleolar ORIF, rt: POD5, PT/OT AFib: continue metoprolol; per cardiology pt is not a candidate for anticoagulation as overall risk of bleed outweighs risk of clotting in this patient; as such we are holding AC Chronic Medical conditions: Parkinson's, continue Sinemet. CKD 3B. DM2 mngmt titrated by icu team. Subjective Date/time seen: 05/31/21 16:48 no extensive interview possible not in acute distress Review of Systems Review of Systems: ROS unobtainable: Yes unobtainable due to medical condition Exam Const: General: no acute distress Neck: Neck: no JVD Resp: Effort & Inspection: normal respiratory effort Auscultation: clear to auscultation bilaterally Cardio: Rate: regular rate Rhythm: regular rhythm GI: GI Palp: Yes Soft to palpation and No Tenderness to palpation present (GI) Objective Data Vital Signs Vital Signs: Vital Signs - 24 hr 05/30/21 17:12 05/30/21 17:16 05/30/21 18:00 Temperature Pulse Rate 61 61 62 Respiratory Rate 17 17 25 H Blood Pressure 154/69 H Pulse Oximetry 90 05/30/21 18:42 05/30/21 20:00 05/30/21 20:26 Temperature Pulse Rate 62 60 60 Respiratory Rate 25 H 22 H Blood Pressure Pulse Oximetry 89 L 05/30/21 20:31 05/30/21 20:35 05/30/21 20:40 Temperature 98 F Pulse Rate 58 L 58 L 58 L Respiratory Rate 21 H 20 20 Blood Pressure 112/99 H Pulse Oximetry 89 L 05/30/21 21:46 05/30/21 22:00 05/30/21 22:10 Temperature 98.3 F Pulse Rate 56 L 58 L 44 L Respiratory Rate 22 H 21 H 31 H Blood Pressure 148/83 H Pulse Oximetry 86 L 94 05/30/21 22:41 05/30/21 22:56 05/31/21 00:00 Temperature 97.7 F Pulse Rate 48 L 46 L 45 L Respiratory Rate 23 H 23 H 23 H Blood Pressure 154/76 H Pulse Oximetry 95 99 05/31/21 00:25 05/31/21 01:20 05/31/21 01:38 Temperature Pulse Rate 45 L 43 L 45 L Respiratory Rate 23 H 24 H 23 H Blood Pressure Pulse Oximetry 96 05/31/21 02:00 05/31/21 02:30 05/31/21 03:20 Temperature 96.7 F L Pulse Rate 43 L 45 L 39 L Respiratory Rate 23 H 22 H 21 H
[2021-05-31] MEDS: dexmedeTOMIDine 400 MCG/100 ML 400 MCG/100 ML BAG 32.52 MCG IV CONT ×3 (17:00→23:51)
[2021-05-31 17:26] LABS: Glucose Point of Care 78 mg/dl (65-105)
[2021-05-31] MEDS: BUDESONIDE RESPULE NEB 0.5 MG/2 ML AMP INHALATION (19:47)
[2021-05-31] MEDS: DEXTROSE 50% 25 GM/50 ML SYRINGE IV PUSH (20:38)
[2021-05-31] MEDS: DEXTROSE 5%/0.9% SOD CHL 1,000 ML 50 ML IV CONT (21:05)
[2021-05-31 21:46] LABS: Glucose Point of Care 50 mg/dl (65-105)
[2021-05-31 21:47] LABS: Glucose Point of Care 161 mg/dl (65-105)
[2021-05-31 21:47] LABS: Glucose Point of Care 119 mg/dl (65-105)
--- NOTE | 2021-05-31 23:09 | PC.NURSE ---
THIS NURSE SPOKE WITH DRUM TESTER ON MULTIPLE OCCASIONS REGARDING PATIENTS INCREASED OXYGEN REQUIREMENTS AND DECREASING OXYGEN SATURATION. ORDERS OBTAINED THROUGHOUT COURSE OF CONVERSATIONS, REFER TO EMR. DRUM TESTER ALSO MADE AWARE OF ONE PERIPHERAL IV ACCESS FOR PATIENT AT THIS TIME WITH UNSUCCESSFUL ATTEMPT MADE FOR IV PLACEMENT VIA ULTRASOUND. ORDER FOR PICC LINE IN THE AM PLACED AT THIS TIME. PATIENT CURRENTLY RECEIVING PRECEDEX TO ALLOW FOR COMPLIANCE WITH BIPAP. AT THIS TIME REMDESIVIR NOT ADMINISTERED DUE TO RISK OF AGITATION AND NONCOMPLIANCE OF BIPAP FOR OXYGENATION NEEDS IF PRECEDEX PLACED ON STANDBY. FAMILY UPDATED ON PATIENT CONDITION. CHARGE NURSE MADE AWARE.
[2021-05-31 23:59] LABS: Glucose Point of Care 144 mg/dl (65-105)
[2021-06-01] VITALS: BP 112/97; PULSE 75; PULSE 79; TEMP 37.9; O2SAT 77
[2021-06-01] MEDS: MORPHINE SULFATE INJ (*CRX) 10 MG/ML AMP 5 MG IV PUSH (00:55)
[2021-06-01] MEDS: LORazepam INJ (*CRX) 2 MG/ML VIAL IV PUSH (01:10)
[2021-06-01] MEDS: MORPHINE SULFATE (*CRX) 2 MG/ML INJ IV PUSH (01:37)
--- NOTE | 2021-06-01 03:52 | PC.NURSE ---
06/01/21: 0000: Family made decision to make patient comfort care. Rim Fire Charger Operator notified and orders received. 0045: Family came to visit patient at bedside when patient was made comfort care. Bipap removed.
--- NOTE | 2021-07-02 15:33 | PM.DDS ---
Discharge Summary Date and Time Date of : 06/01/21 Time of : 02:01 Provider Pronounced By: garry gaspar Probable Cause of Probable Cause of : covid pneumoni Summary Hospital Course: 80 YO MAN WITH COPD PARKINSOISM CKD3 PRESENTING WITH FREQUENT FALLS AND ANKLE FRACTURE. DIAGNOSED WITH COVID PNEUMONIA, AND RECEIVED STANDARD OF CARE INCLUDING STEROIDS AND REMDESIVIR. NOT ABLE TO BE QWEANED OFF OF OXYGEN SUPPLEMENTATION. PRONOUNCED BY DR CHEEMA 06/01/21. Additional Data Confirmation of as documented by pronouncing clinician: Pupillary Reflex, Palpable Pulses, Response to Stimuli, Heart Tones and Breath Sounds Name of Provider Notified: dr ruff Time Provider Notified: 02:10 Provider Requests Autopsy: No Family Requests Autopsy: No Drum Barker Operator Notified: Yes Date [facility] Notified of : 06/01/21 Time [facility] Notified of : 02:40
== END 2021-06-01 02:01 | disposition expired | DRG 492 ==
LOC: ANHED 15:17 → ANH2MED 15:45 → ANH3MEDSUR 18:41 → ANHICU 05-26 10:49 → ANH3MEDSUR 06-02 11:43 → ANHICU 06-02 11:43
PROVIDERS: Internal Medicine; Nurse Practitioner; Orthopaedic Surgery; Admitting Provider Internal Medicine; Emergency Provider Emergency Medicine; PCP Physician Assistant; Visit Provider Internal Medicine
PROC: 0QSJ04Z Reposition Right Fibula with Internal Fixation Device, Open Approach (ICD-10-PCS; principal; 2021-05-25 15:30)
DX: S82.841A Displaced bimalleolar fracture of right lower leg, initial encounter for closed fracture (principal); U07.1 COVID-19; J12.82 Pneumonia due to coronavirus disease 2019; J96.01 Acute respiratory failure with hypoxia; G93.40 Encephalopathy, unspecified; J44.0 Chronic obstructive pulmonary disease with (acute) lower respiratory infection; W06.XXXA Fall from bed, initial encounter; G20 Parkinson's disease; F02.80 Dementia in other diseases classified elsewhere, unspecified severity, without behavioral disturbance, psychotic disturbance, mood disturbance, and anxiety; I12.9 Hypertensive chronic kidney disease with stage 1 through stage 4 chronic kidney disease, or unspecified chronic kidney disease; E11.22 Type 2 diabetes mellitus with diabetic chronic kidney disease; N18.32 Chronic kidney disease, stage 3b; E11.42 Type 2 diabetes mellitus with diabetic polyneuropathy; E11.65 Type 2 diabetes mellitus with hyperglycemia; I48.91 Unspecified atrial fibrillation; E78.00 Pure hypercholesterolemia, unspecified; R29.6 Repeated falls; Z66 Do not resuscitate; Z79.4 Long term (current) use of insulin; Z79.82 Long term (current) use of aspirin
CPT/HCPCS: 27810; 36415; 36600; 70450; 71045; 71275; 73600; 80048; 80053; 80061; 82140; 82375; 82565; 82805; 82948; 83036; 83050; 83605; 83735; 84100; 84443; 84450; 84460; 85025; 85027; 85610; 87086; 87426; 93005; 93306; 94002; 94003; 94640; 94660; 96361; 96374; 97162; 97166; 97167; 99285; A9270; C1713; C1769; C9803; G0378; J0131; J0690; J1100; J1170; J1644; J1815; J1940; J2060; J2270; J2405; J2704; J3010; J7030; J7042; J7120; J7512; Q9967; U0003; U0005